=== PATIENT | male | born 1985 | race Caucasian/White ===

== ENCOUNTER 2018-09-23 02:23 | Emergency (ER) | payer OTHER ==
[~2018-09-23] VITALS: Ht 170.2 cm; Wt 93.0 kg
[~2018-09-23 02:23] MED LIST: BUPR150ER PO; Bactrim Ds Tab1 EACH PO; CEPH500 PO; CETI10 PO; CLIN300 PO; CLON.2 PO; CODACE30 PO; Cleocin HCl300 MG PO; Daypro600 MG PO; HYDACE10B PO; HYDACE5 PO; IBUP200; IBUP600 PO; IBUP800 PO; KETO10 PO; META800 PO; METO25ER PO; METO50 PO; METPRE4DP PO; NAPR375 PO; NAPR500 PO; Norco 5-325 Ta1 EACH PO; OXYACE5T PO; PARO20 PO; PRED10 PO; PRED20 PO; PROM25 PO; Pepcid20 MG PO; Percocet 5-3251 EACH PO; Prednisone20 MG PO; RXCLIN PO; RXHYDACE PO; RXTRAM50 PO; SUBOXONE 8 MG-1 EACH SL; SULF10OPSA OS; SULTRIDS PO; TRAM50 PO; Ultram50 MG PO; Vistaril25 MG PO
[2018-09-23] MEDS ORDERED: METH40 PO (04:27)
[2018-09-23] MEDS ORDERED: Garamycin5 ML RIGHTEYE (04:36)
== END 2018-09-23 04:52 | disposition home or self-care (01) ==
LOC: ER 02:23
DX: H10.9 Unspecified conjunctivitis (principal); F17.210 Nicotine dependence, cigarettes, uncomplicated; Z88.5 Allergy status to narcotic agent
CPT/HCPCS: 99283

== ENCOUNTER 2019-02-07 07:04 | Emergency (ER) | payer OTHER ==
[~2019-02-07] VITALS: Ht 170.2 cm; Wt 87.1 kg
[~2019-02-07 07:04] MED LIST changes: +Garamycin5 ML RIGHTEYE; +METH40 PO
[2019-02-07] MEDS ORDERED: ESCI10 PO (07:23)
[2019-02-07] MEDS ORDERED: ZESTORETIC 20-121 EA PO (07:23)
[2019-02-07] MEDS ORDERED: Lopressor 25 mg25 MG PT (07:24)
[2019-02-07] MEDS ORDERED: AMIT50 PO (07:25)
[2019-02-07] MEDS ORDERED: ESZO3 PO (07:25)
[2019-02-07] MEDS ORDERED: Colace100 MG PO (07:25)
[2019-02-07] MEDS ORDERED: Zantac150 MG PO (07:27)
[2019-02-07] MEDS ORDERED: Gentak3.5 GM RIGHTEYE (07:56)
== END 2019-02-07 09:10 | disposition home or self-care (01) ==
LOC: ER 07:04
DX: H18.821 Corneal disorder due to contact lens, right eye (principal); H10.9 Unspecified conjunctivitis; Z88.5 Allergy status to narcotic agent; Z88.8 Allergy status to other drugs, medicaments and biological substances; Z79.899 Other long term (current) drug therapy; F17.210 Nicotine dependence, cigarettes, uncomplicated
CPT/HCPCS: 96372; 99282-25; J1885

== ENCOUNTER 2020-09-17 21:45 | Emergency (ER) | payer OTHER ==
[~2020-09-17] VITALS: Ht 170.2 cm; Wt 83.9 kg
[~2020-09-17 21:45] MED LIST changes: +AMIT50 PO; +Colace100 MG PO; +ESCI10 PO; +ESZO3 PO; +Gentak3.5 GM RIGHTEYE; +Lopressor 25 mg25 MG PT; +ZESTORETIC 20-121 EA PO; +Zantac150 MG PO
== END 2020-09-18 00:43 | disposition home or self-care (01) ==
LOC: ER 21:45
DX: F15.10 Other stimulant abuse, uncomplicated (principal); F19.10 Other psychoactive substance abuse, uncomplicated; F17.210 Nicotine dependence, cigarettes, uncomplicated; Z91.041 Radiographic dye allergy status; Z79.899 Other long term (current) drug therapy
CPT/HCPCS: 96372; 99284-25

== ENCOUNTER 2020-09-19 04:04 | Emergency (ER) | payer OTHER ==
[~2020-09-19] VITALS: Ht 177.8 cm; Wt 86.2 kg
== END 2020-09-19 04:46 | disposition home or self-care (01) ==
LOC: ER 04:04
DX: Z00.00 Encounter for general adult medical examination without abnormal findings (principal); F17.210 Nicotine dependence, cigarettes, uncomplicated; Z88.5 Allergy status to narcotic agent; Z91.041 Radiographic dye allergy status
CPT/HCPCS: 99283

== ENCOUNTER 2020-09-21 00:59 | Inpatient (IN) | payer OTHER ==
[~2020-09-21] VITALS: Ht 180.3 cm; Wt 88.3 kg
[2020-09-21] MEDS ORDERED: AMIT50 PO (01:28)
[2020-09-21] MEDS ORDERED: ESCI10 PO (01:29)
[2020-09-21] MEDS ORDERED: ROPINIROLE HCL1 MG PO (01:29)
[2020-09-21] MEDS ORDERED: CARVEDILOL12.5 MG PO (01:29)
[2020-09-21 01:30] LABS: Calcium, Ionized (POC) 0.41 mmol/L (1.10-1.46); Chloride (POC) 76 mmol/L (98-108); Glucose (ISTAT POC) 158 mg/dL (70-99); Hemoglobin (POC) 11.9 g/dL (13.5-17.5); Sodium (POC) 111 mmol/L (135-148); Total CO2 (POC) 14 mmol/L (21-32)
[2020-09-21 01:38] LABS: BASOPHILS ABSOLUTE AUTO 0.01 K/mm3 (0.00-0.23); BASOPHILS PERCENT AUTO 0 % (0-2); EOSINOPHILS PERCENT AUTO 0 % (0-6); Hematocrit 30.8 % (37.0-53.0); Hemoglobin 11.2 g/dL (13.5-17.5); IMMATURE GRAN ABSOLUTE AUTO 0.05 K/mm3 (0.00-0.10); IMMATURE GRAN PERCENT AUTO 1 % (0-1); LYMPHOCYTES PERCENT AUTO 4 % (21-46); MONOCYTES ABSOLUTE AUTO 0.39 K/mm3 (0.16-1.47); MONOCYTES PERCENT AUTO 4 % (4-13); Mean Corpuscular HGB Conc 36.4 g/dL (31.5-36.5); Mean Corpuscular Volume 80 fL (80-100); Mean Platelet Volume 10.4 fL (9.1-12.4); NEUTROPHILS ABSOLUTE AUTO 9.62 K/mm3 (1.96-9.15); NEUTROPHILS PERCENT AUTO 92 % (41-73); Platelet Count 196 K/mm3 (150-400); RDW Coefficient Variation 12.3 % (11.7-14.2); RDW Standard Deviation 35.9 fL (35.1-46.3); Red Blood Cell Count 3.86 M/mm3 (4.30-5.90); White Blood Cell Count 10.47 K/mm3 (4.00-11.30)
[2020-09-21 02:01] LABS: Source, Urine Clean Catch
[2020-09-21 02:03] LABS: Appearance, Urine Hazy (Clear); Blood, Urine 5+ (Neg); Color, Urine Brown (P-Yellow); Glucose Qualitative, Urine 2+ (Neg); Ketones, Urine 1+ (Neg); Leukocyte Esterase, Urine 1+ (Neg); Nitrite, Urine Pos (Neg); Protein, Urine 3+ (Neg); Specific Gravity, Urine 1.025 (1.003-1.022); Urobilinogen, Urine NORM (Normal)
[2020-09-21 02:20] LABS: Bilirubin, Urine 1+ (Neg)
[2020-09-21 02:22] LABS: Amorphous Mod (0-Heavy); Bacteria Mod /hpf; Squamous Epithelial Cells Rare /hpf (Few)
[2020-09-21 05:14] LABS: Magnesium, Blood 1.8 mg/dL (1.6-2.4)
[2020-09-21 06:19] LABS: Alanine Aminotransfer (ALT/SGP 392 U/L (12-78); Albumin, Blood 1.9 g/dL (3.4-5.0); Albumin/Globulin Ratio 0.7 (0.8-1.8); Alk Phos 64 U/L (50-136); Anion Gap 26 mmol/L (6-16); Aspartate Aminotrans (AST/SGOT 517 U/L (12-37); Bilirubin, Total 0.7 mg/dL (0.1-1.0); Blood Urea Nitrogen 178 mg/dL (8-24); Bun/Creatinine Ratio 20.8 (12.0-20.0); CO2, Blood 11 mmol/L (21-32); Calcium, Blood <5.0 mg/dL (8.5-10.1); Chloride, Blood 85 mmol/L (98-108); Creatinine, Blood 8.55 mg/dL (0.60-1.20); Globulin, Blood 2.6 g/dL (2.2-4.0); Glomerular Filtration Rate 8 (60-); Glucose, Blood 38 mg/dL (70-99); Phosphorus, Blood 8.4 mg/dL (2.5-4.9); Potassium, Blood 5.4 mmol/L (3.5-5.5); Sodium, Blood 122 mmol/L (136-145); Total Protein, Blood 4.5 g/dL (6.4-8.2)
[2020-09-21 06:51] LABS: CPK Creatine Kinase >20000 U/L (39-308)
--- NOTE | 2020-09-21 07:35 | NUR ---
PT ARRIVED TO ICU 4 FROM ER VIA [facility]. ACCOMPANIED BY SUPERVISOR OF GUIDANCE AND TESTING. HAS SODIUM BICARB AND PROTONIX GTT RUNNING. CALCIUM GLUCONATE IS FINISHING UP. PT IS A/O X4. HE IS DROWSY AND WILL SLEEP WHEN LEFT ALONE. HAS MUSCLE TWITCHING T/O BODY. PT STATES THAT HE RELAPSED ON METH ALMOST A WEEK AGO AND HAS NOT DRANK ALCOHOL. HE ALSO STATES HE DOES HEROIN SOMETIMES. PT HAS SCRATCHES AND ABRASIONS T/O ENTIRE BODY. SCABS ALL OVER ARMS AND LEGS. HAS SCABS AROUND MOUTH WELL. STATES MOUTH IS SORE IN WHICH PT WILL SUCK BOTTOM LIP INTO MOUTH WHEN AT REST (NO TEETH). ALSO HAS BRUISING AROUND WRISTS AND DOWN LEGS AND BUTTOCKS. HAS BAJWA CATH DRAINING COLA COLORED URINE. DR. TERRELL HAS BEEN CONSULTED. NO SIGN OF DISTRESS AT THE MOMENT.
[2020-09-21 07:48] LABS: U Amphetamine Screen DETECTED; U Barbituate Screen Not Detected; U Benzodiazapine Screen Not Detected; U Cocaine Screen Not Detected; U Methadone Screen DETECTED; U Methamphetamine Screen DETECTED
[2020-09-21 07:49] LABS: U Buprenorphine Screen Not Detected; U Cannabinoids Screen Not Detected; U Opiates Screen Not Detected; U Oxycodone Screen Not Detected; U Phencyclidine Screen Not Detected; U Propoxyphene Screen Not Detected
[2020-09-21 10:58] LABS: Base Excess Venous -8.1 mmol/L; Bicarbonate Venous 18.2 mmol/L (24.0-30.0); PCO2 Venous 24.9 mmHg (38-42); pH Blood Venous 7.42 (7.34-7.37)
[2020-09-21 11:12] LABS: BASOPHILS ABSOLUTE AUTO 0.01 K/mm3 (0.00-0.23); BASOPHILS PERCENT AUTO 0 % (0-2); EOSINOPHILS PERCENT AUTO 0 % (0-6); IMMATURE GRAN ABSOLUTE AUTO 0.04 K/mm3 (0.00-0.10); IMMATURE GRAN PERCENT AUTO 0 % (0-1); LYMPHOCYTES ABSOLUTE AUTO 0.31 K/mm3 (0.84-5.20); LYMPHOCYTES PERCENT AUTO 3 % (21-46); MONOCYTES ABSOLUTE AUTO 0.25 K/mm3 (0.16-1.47); MONOCYTES PERCENT AUTO 3 % (4-13); Mean Corpuscular HGB 29.4 pg (26.0-34.0); Mean Corpuscular Volume 79 fL (80-100); Mean Platelet Volume 10.3 fL (9.1-12.4); NEUTROPHILS ABSOLUTE AUTO 8.55 K/mm3 (1.96-9.15); NEUTROPHILS PERCENT AUTO 93 % (41-73); Platelet Count 169 K/mm3 (150-400); RDW Coefficient Variation 12.4 % (11.7-14.2); RDW Standard Deviation 35.8 fL (35.1-46.3); White Blood Cell Count 9.16 K/mm3 (4.00-11.30)
[2020-09-21 12:12] LABS: CPK Creatine Kinase >20000 U/L (39-308)
[2020-09-21 12:31] LABS: Alanine Aminotransfer (ALT/SGP 450 U/L (12-78); Albumin, Blood 2.2 g/dL (3.4-5.0); Albumin/Globulin Ratio 0.7 (0.8-1.8); Alk Phos 73 U/L (50-136); Anion Gap 22 mmol/L (6-16); Aspartate Aminotrans (AST/SGOT 554 U/L (12-37); Bilirubin, Total 1.2 mg/dL (0.1-1.0); Blood Urea Nitrogen 209 mg/dL (8-24); Bun/Creatinine Ratio 19.4 (12.0-20.0); CO2, Blood 17 mmol/L (21-32); Calcium, Blood <5.0 mg/dL (8.5-10.1); Chloride, Blood 79 mmol/L (98-108); Globulin, Blood 3.2 g/dL (2.2-4.0); Glomerular Filtration Rate 6 (60-); Glucose, Blood 174 mg/dL (70-99); Potassium, Blood 5.1 mmol/L (3.5-5.5); Sodium, Blood 118 mmol/L (136-145); Total Protein, Blood 5.4 g/dL (6.4-8.2)
[2020-09-21 12:45] LABS: Creatine Kinase MB 573.6 ng/mL (0.0-3.6)
[2020-09-21 12:46] LABS: Creatine Kinase MB Index Unable to Calculate (0.0-4.0)
[2020-09-21 13:49] LABS: pH, Urine 6.5 (5.0-8.0)
--- NOTE | 2020-09-21 16:08 | NUR ---
PT FEELING ANXIOUS. HAS MUSCLE TWITCHES T/O BODY. DR. WORKMAN ORDERED A DOSE OF FENTANYL.
[2020-09-21 16:10] LABS: Base Excess Venous -4.8 mmol/L; Bicarbonate Venous 21.2 mmol/L (24.0-30.0); PCO2 Venous 27.2 mmHg (38-42); PO2 Venous 80.9 mmHg (38-42); pH Blood Venous 7.46 (7.34-7.37)
[2020-09-21 16:30] LABS: Anion Gap 23 mmol/L (6-16); Blood Urea Nitrogen 212 mg/dL (8-24); Bun/Creatinine Ratio 19.3 (12.0-20.0); CO2, Blood 19 mmol/L (21-32); Calcium, Blood <5.0 mg/dL (8.5-10.1); Chloride, Blood 80 mmol/L (98-108); Glomerular Filtration Rate 6 (60-); Glucose, Blood 97 mg/dL (70-99); Potassium, Blood 4.8 mmol/L (3.5-5.5); Sodium, Blood 122 mmol/L (136-145)
--- NOTE | 2020-09-21 18:51 | NUR ---
SUMMARY PT IS A/O X4. DROWSY T/O THE DAY BUT AWAKENS EASILY. MUSCLE TWITCHING T/O BODY. HAS GOTTEN CALCIUM GLUCONATE IVPB 2X TODAY. DR. TERRELL ON THE CASE FOR RENAL FAILURE AND UPDATED T/O THE DAY. DR. WORKMAN ALSO FOLLOWING FOR CRITICAL CARE. PT HAD ONE LOW GLUCOSE TODAY OF 34. D50 GIVEN AND HAS BEEN BETTER SINCE. PT IS ALSO ABLE TO TOLERATE REGULAR DIET. HAS GOTTEN 2 DOSES OF SODIUM BICARB IVP WELL. LABS CONTINUE TO BE CRITICAL BUT DR. TERRELL SAYS NO DIALYSIS YET. WILL CHECK LABS AGAIN IN AM. CALL LIGHT IN REACH.
--- NOTE | 2020-09-21 22:04 | NUR ---
CARE ASSUMPTION PT A&OX4. SP02>90% ON RA. RR 24. SP02 MONITOR CHANGED MULTIPLE TIMES TO GET GOOD READING. BP STABLE. PT C/O OF 7/10 PAIN "ALL OVER". PT SKIN HAS SCABBING T/O AND TWITCHING T/O. BAJWA CATHETER DRAINING TEA COLORED URINE TO GRAVITY. PT WAS UP TO BSC HAVING BM UPON CARE ASSUMPTION. FLUIDS INFUSING PER EMAR. CALL LIGHT IN REACH. BED IN LOWEST POSITION.
[2020-09-22 03:51] LABS: International Normalized Ratio 1.11; Prothrombin Time Results 11.8 Sec (9.7-11.5)
[2020-09-22 03:55] LABS: BASOPHILS PERCENT AUTO 0 % (0-2); EOSINOPHILS ABSOLUTE AUTO 0.03 K/mm3 (0.00-0.68); EOSINOPHILS PERCENT AUTO 0 % (0-6); Hematocrit 25.6 % (37.0-53.0); Hemoglobin 9.6 g/dL (13.5-17.5); IMMATURE GRAN ABSOLUTE AUTO 0.04 K/mm3 (0.00-0.10); IMMATURE GRAN PERCENT AUTO 0 % (0-1); LYMPHOCYTES ABSOLUTE AUTO 0.68 K/mm3 (0.84-5.20); LYMPHOCYTES PERCENT AUTO 7 % (21-46); MONOCYTES ABSOLUTE AUTO 0.52 K/mm3 (0.16-1.47); MONOCYTES PERCENT AUTO 6 % (4-13); Mean Corpuscular HGB 29.2 pg (26.0-34.0); Mean Corpuscular HGB Conc 37.5 g/dL (31.5-36.5); Mean Corpuscular Volume 78 fL (80-100); Mean Platelet Volume 10.2 fL (9.1-12.4); NEUTROPHILS ABSOLUTE AUTO 8.12 K/mm3 (1.96-9.15); NEUTROPHILS PERCENT AUTO 87 % (41-73); Platelet Count 162 K/mm3 (150-400); RDW Coefficient Variation 12.5 % (11.7-14.2); RDW Standard Deviation 34.7 fL (35.1-46.3); Red Blood Cell Count 3.29 M/mm3 (4.30-5.90); White Blood Cell Count 9.39 K/mm3 (4.00-11.30)
[2020-09-22 05:23] LABS: Blood Urea Nitrogen 196 mg/dL (8-24); Glomerular Filtration Rate 6 (60-); Phosphorus, Blood 8.7 mg/dL (2.5-4.9)
[2020-09-22 05:25] LABS: Alanine Aminotransfer (ALT/SGP 422 U/L (12-78); Albumin, Blood 2.2 g/dL (3.4-5.0); Albumin/Globulin Ratio 0.7 (0.8-1.8); Alk Phos 71 U/L (50-136); Anion Gap 21 mmol/L (6-16); Aspartate Aminotrans (AST/SGOT 469 U/L (12-37); Bilirubin, Direct 0.2 mg/dL (0.0-0.3); Bilirubin, Indirect 0.5 mg/dL (0.1-0.7); Bilirubin, Total 0.7 mg/dL (0.1-1.0); CO2, Blood 22 mmol/L (21-32); CPK Creatine Kinase >20000 U/L (39-308); Calcium, Blood <5.0 mg/dL (8.5-10.1); Chloride, Blood 79 mmol/L (98-108); Globulin, Blood 3.2 g/dL (2.2-4.0); Glucose, Blood 87 mg/dL (70-99); Magnesium, Blood 1.9 mg/dL (1.6-2.4); Potassium, Blood 4.4 mmol/L (3.5-5.5); Sodium, Blood 122 mmol/L (136-145); Total Protein, Blood 5.4 g/dL (6.4-8.2); Uric Acid, Blood 14.3 mg/dL (3.5-7.2)
--- NOTE | 2020-09-22 05:37 | NUR ---
LABS LAB CALLED TO NOTIFY PT RESULTS CAME BACK CALCIUM <5. CALLED RESULTS INTO MD TERRELL. MD TERRELL WITH ORDERS FOR 1 AMP CALCIUM GLUCONATE.
--- NOTE | 2020-09-22 06:27 | NUR ---
SHIFT SUMMARY PT A&OX4. SP02>92% ON RA. TELEMETRY READS SR, HR 70'S-80'S. VSS. PT'S HANDS SLIGHTLY EDEMITIS. REPLACED PT WRISTBAND D/T BEING TOO TIGHT. PT CONTINUES TO HAVE MUSCLE TWITCHING T/O. PT DID HAVE ONE EPISODE OF NAUSEA/DRY HEAVING. MEDICATED W/ ZOFRAN PER EMAR. PT C/O OF 7/10 PAIN "ALL OVER". MEDICATED W/ DILAUDID PER EMAR X2. PT HAS BJAWA CATHETER DRAINING YELLOW URINE TO GRAVITY. [place] [facility] [place]1. PT DID HAVE CRITICAL LAB RESULTS, SEE PREVIOUS NOTE. FLUIDS INFUSING PER EMAR. PT SOMETIMES USES CALL LIGHT, BUT ALSO CALLS OUT "NURSE" TO MAKE NEEDS KNOW. CALL LIGHT IN REACH. WILL GIVE REPORT TO ONCOMING SHIFT.
--- NOTE | 2020-09-22 07:30 | NUR ---
PT RECEIVED FROM MARY TERESA. PT FEELS LIKE HE NEEDS TO USE THE BSC. RESTLESS, SEEMS LIKE HE IS FLAILING...ENCOURAGED HIM TO MOVE HIMSELF TO THE EDGE OF THE BED TO ASSIST IN GETTING TO THE COMMODE. LOTS OF VERBAL CUES, UNSTEADY GAIT, PT MOANS, CRIES OUT WITH ANY TOUCH. ALL 4 EXTREMITIES WITH PERIPHERAL EDEMA, MULITPLE SCABS ACROSS HIS FACE,NARES,LIPS,CHIN,ARMS,LEGS,FEET. PT STATES HE FEELS "GASSY". PT ASKING ABOUT SHOWER. IV'S INFUSING D5LR @ 75 AND HCO3 @ 100ML. BAJWA DRAINING CLEAR YELLOW AT THIS TIME.
--- NOTE | 2020-09-22 09:00 | NUR ---
PT REQUESTS PAIN MEDS, DILAUDID 0.5MG GIVEN PER ORDER.
--- NOTE | 2020-09-22 11:16 | NUR ---
PT ASKING FOR ADDITIONAL PAIN MEDS, STILL "SPITTING UP" IN HIS EMESIS BAG. NO VOMIT, JUST SPITTAL. ZOFRAN GIVEN PER OCT.
--- NOTE | 2020-09-22 12:04 | NUR ---
PT ASKING FOR MORE PAIN MEDS, CALLED . ORDERS RECEIVED,PATIENT MEDICATED PER ORDERS.
--- NOTE | 2020-09-22 14:00 | NUR ---
PT ASKING FOR MORE MEDS, DISCUSSION ABOUT COPING MECHANISMS, HOW DO YOU DEAL WITH STUFF WHEN YOU ARE WORKED UP? IS IT SINUS DRAINAGE YOU FEEL IN THE BACK OF YOUR THROAT? DOES YOUR HEAD HURT? WHAT IS THE BEST WAY TO HANDLE YOUR DISCOMFORT? PT ASKS TO "VAPE", TOLD NO. NOT GOOD FOR HIS LUNGS. PT THEN ASKS FOR CIGARETTES, AGAIN EXPLAINED THIS IS A TOBACCO FREE CAMPUS. WAS ABLE TO GET AHOLD OF , ORDERS RECEIVED. 1442 PATIENT MEDICATED WITH MORPHINE AND ATIVAN. 1500-PATIENT STATES FEELING BETTER.
--- NOTE | 2020-09-22 16:31 | NUR ---
PT RESTING QUIETLY, HAD TO WAKE HIM FOR 1600 INJECTIONS OF MEDICATIONS AND CBG. PT STATES THAT NOW HE IS AWAKE AND WANTS HIS NICORETTE GUM. PT MORE SETTLED THAN EARLIER IN THE SHIFT.
--- NOTE | 2020-09-22 18:38 | NUR ---
MARK HAS BEEN ENGAGING THIS SHIFT. HE HAS BEEN MOANING WHEN I AM NOT IN THE ROOM. HE HAS BEEN TRYING TO CHIT CHAT A LITTLE BIT TODAY BUT HE IS DEFINITELY NOT HAPPY. HE STATED HE IS "HATING LIFE RIGHT NOW". HE HAS BEEN ASKING ABOUT PAIN MEDS EVERY COUPLE OF HOURS, HAD MULTIPLE CONVERSATIONS WITH TODAY REGARDING HIS REQUESTS. HE CONTINUES TO "SPIT" OFTEN. HE ACTS LIKE HE HAS POST NASAL DRIP THAT IS JUST IRRITATING HIM. HE PICKS AT HIS NOSE AND MAKES IT BLEED, CLEARS HIS THROAT SO OFTEN THAT HE GETS FRESH BLOOD IN HIS TISSUE. I HAVE TALKED TO HIM ABOUT INCREASING HIS FLUID INTAKE AND TRYING TO NOT FORCE THE THROAT CLEARING AND SPITTING. TRIED TALKING TO HIM ABOUT DIFFERENT WAYS TO DEAL WITH HIMSELF WHEN HE GETS WORKED UP LIKE HE WAS EARLIER. HE SAYS HE NORMALLY JUST WORKS. HIS FATHER VISITED TODAY, SAID HIS SON HAD BEEN CLEAN FOR 5 YEARS AND THEN RECENTLY WENT THROUGH A DIVORCE. PT DOESN'T TALK ABOUT IT. DID ORDER NICORETTE GUM FOR PATIENT, HE IS CRAVING CIGARETTES OR "VAPING". VITALS HAVE BEEN STABLE, URINE OUTPUT GOOD. ONE BOWEL MOVEMENT THIS AM, GOOD APPETITE.
--- NOTE | 2020-09-22 19:47 | NUR ---
SHIFT ASSESSMENT ASSUMED CARE OF PT @ 1900, REPORT RECEIVED FROM MARY ORTEGA. PT ALERT AND ORIENTED, RESPONDS APPROPRIATELY. PT STATES "I FEEL TERRIBLE". WHEN ASKED WHAT'S WRONG, HE REPLIED "EVERYTHING HURTS, I'VE BEEN IN PAIN SINCE I HAVE BEEN HERE". PT REQUESTING A DIFFERENT PAIN MEDICATION BY NAME, OPANA. PT FIDGETY IN BED. WINCING IN RESPONSE TO TOUCH DURING ASSESSMENT. EDEMA IN ALL EXTREMITIES, DRIED SCABS COVERING BODY. BAJWA CATH PATENT, DRAINING CLEAR YELLOW URINE. D5LR AND HCO3 INFUSING AT PRESCRIBED RATE. WILL CONTINUE TO MONITOR.
[2020-09-23 03:44] LABS: Hematocrit 24.8 % (37.0-53.0); Hemoglobin 9.3 g/dL (13.5-17.5)
[2020-09-23 04:26] LABS: Creatine Kinase MB 83.6 ng/mL (0.0-3.6); Magnesium, Blood 1.8 mg/dL (1.6-2.4)
[2020-09-23 04:34] LABS: Anion Gap 19 mmol/L (6-16); Blood Urea Nitrogen 196 mg/dL (8-24); CO2, Blood 26 mmol/L (21-32); Chloride, Blood 79 mmol/L (98-108); Glomerular Filtration Rate 5 (60-); Glucose, Blood 138 mg/dL (70-99); Potassium, Blood 3.5 mmol/L (3.5-5.5); Sodium, Blood 124 mmol/L (136-145)
[2020-09-23 04:36] LABS: Calcium, Blood <5.0 mg/dL (8.5-10.1)
[2020-09-23 04:37] LABS: CPK Creatine Kinase >20000 U/L (39-308)
--- NOTE | 2020-09-23 07:17 | NUR ---
SHIFT SUMMARY PT REMAINS ALERT AND ORIENTED. HIS PAIN AND RESTLESSNESS SEEMED TO DIMINISH T/O THE NIGHT. PT ABLE TO SLEEP INTERMITTENTLY. D5LR AND HCO3 CONTINUE AT PRESCRIBED RATE. AM LABS CALLED IN TO DR. TERRELL, 1AMP OF CALCIUM GLUCONATE ORDERED AND GIVEN THIS AM. NO OTHER SIGNIFICANT CHANGES IN PT CONDITION. REPORT GIVEN TO MARY ORTEGA.
--- NOTE | 2020-09-23 10:00 | NUR ---
TALKING WITH PATIENT,ORDERS RECEIVED FOR TUMS AND CALCITROL.
--- NOTE | 2020-09-23 10:30 | NUR ---
MARK HAS BEEN BUSY THIS AM, HE STARTED WITH REQUESTING TO BE UP AND OUT OF BED WALKING FIRST THING THIS AM. HE WAS INSTRUCTED THAT HE NEEDED TO SHOW MORE INDEPENDENCE FOR ME TO WALK HIM AROUND. HE WAS ASKED TO MOVE TO THE CHAIR, HE IS VERY SLOW IN MOVING, UNABLE TO MOVE HIS LEGS WITHOUT ASSISTANCE OUT OF THE BED, HE ALSO CANNOT STAND FULLY UPRIGHT WITHOUT FEELING WEAK AND WOBBLY. HE LIKED BEING IN THE CHAIR, BUT NEEDED TO USE THE BSC PRETTY QUICKLY. HE HAD A LARGE LOOSE BROWN STOOL. HE HAD BEEN SLIGHTLY INCONTINENT IN THE BED, NOT REALIZING. HE ATE HIS BREAKFAST WELL. HE USED THE BSC AGAIN AND HAD A PARTIAL BATH WHILE UP. HE IS CURRENTLY IN THE CHAIR WITH HIS LEGS PROPPED ON THE BED. PICKING AT HIS FINGERS, FOREHEAD, ETC. ENCOURAGED HIM TO APPLY A GOOD LAYER OF LOTION TO HIS SKIN AND SEE IF IT HELPS.
--- NOTE | 2020-09-23 11:09 | NUR ---
MARK TO [facility] [place] AGAIN, HE IS EXPRESSING FRUSTRATION WITH HOW OFTEN HE NEEDS TO GO TO THE COMMODE. HE IS FEELING TIRED AND HEADS TO BED. HE IS TWITCHING AND MOANING IN HIS SLEEP, BUT FINALLY RESTING.
--- NOTE | 2020-09-23 11:43 | NUR ---
PT IS SLEEPING WELL
--- NOTE | 2020-09-23 15:00 | NUR ---
PT'S DAD, BRIGETTE JUST CAME IN TO VISIT,BROUGHT THE PATIENT POPSCICLES AND HIS PERSONAL SAFE FULL OF HIS OWN MEDICATIONS INCLUDING HIS METHADONE, PER BRIGETTE. I DISCUSSED WITH MARK THAT HE CAN NOT HAVE HIS OWN MEDICATIONS, ESPECIALLY THINGS THAT ARE NOT PRESCRIBED BY OUR DOCTORS HERE. HE ARGUES THAT METHADONE IS A PRESCRIBED MEDICATION FOR HIM AND THAT IT HAS BEEN A BIG "REASON THAT HE MADE IT THROUGH THE LAST COUPLE OF YEARS". I EXPLAINED THAT THE DOCTORS HERE ARE AWARE OF WHAT HE TAKES AND WHY, BUT THAT IN THE STATE HIS BODY IS IN AND THE MEDICATIONS THAT HE IS RECEIVING, IT MAY NOT BE BENEFICIAL FOR HIM TO RECEIVE THOSE AT THIS TIME. HE EXPRESSED HIS FRUSTRATION. I EXPLAINED THE MEDS WILL BE GOING BACK HOME WITH HIS FATHER.
--- NOTE | 2020-09-23 15:22 | NUR ---
PT MEDICATED FOR 06/19 PAIN. YES, HE SAID 11. ALSO GAVE HIM SOME ATIVAN TO CALM HIM DOWN. PT DID ASK IF HE COULD GET SOME PHYSICAL THERAPY TO HELP STRENGTHEN HIS LEGS. HE RECOGNIZES THAT THEY ARE INCREDIBLY WEAK AND HE CAN'T STAND ALONE. HE WAS PRAISED FOR ACKNOWLEDGING A NEED AND ASKING FOR IT.
--- NOTE | 2020-09-23 17:31 | NUR ---
MARK IS CURRENTLY RESTING, HE HAS BEEN MORE ALERT AND ORIENTED THROUGHOUT THE DAY. HE WANTS TO BE MORE INDEPENDENT, BUT HE IS STILL UNSTEADY AND NOT FOCUSING CLEARLY, [place] [facility] [place] HE IS STILL HAVING STOOLS AFTER EACH MEAL, THEY ARE LARGE,LIQUID,MUCOUS FILLED. HE HAS BEEN LESS "SPITTY" TODAY. HE HAS BEEN VERY HUNGRY AND EATING WHATEVER COMES HIS WAY, ALSO HAVING HIS DAD BRING IN FOOD FROM [employer]. HE IS STILL FRUSTRATED THAT HE DOES NOT HAVE HIS METHADONE, BUT IS DOING BETTER WITH THE COMBINATION OF DRUGS BEING GIVEN. REPORT JUST GIVEN TO DAVID LOZANO RN. WILL TRANSFER TO [facility]- WHEN AVAILABLE.
--- NOTE | 2020-09-23 18:33 | NUR ---
ASSUMED CARE: PT TRANSFERRED FROM ICU AFTER REPORT FROM MARY ORTEGA. PT TRANSFERRED TO BED AND WALKED TO PCU BED. HE APPEARS TO NEED PROMPTING FOR ACTIVITY AND WHEN FOLLOWING DIRECTIONS. NSR ON TELE, FLUIDS RESTARTED PER EMAR. MEDICATED FOR PAIN AND REVIEWED MEDICATION ORDERS WITH PT. BED ALARM ON. NO FURTHER NEEDS AT THIS TIME.
[2020-09-24 04:16] LABS: Hematocrit 25.4 % (37.0-53.0)
[2020-09-24 04:51] LABS: Magnesium, Blood 1.7 mg/dL (1.6-2.4)
[2020-09-24 05:05] LABS: Albumin, Blood 1.8 g/dL (3.4-5.0); Anion Gap 16 mmol/L (6-16); Blood Urea Nitrogen 182 mg/dL (8-24); CO2, Blood 28 mmol/L (21-32); Calcium, Blood <5.0 mg/dL (8.5-10.1); Chloride, Blood 84 mmol/L (98-108); Glomerular Filtration Rate 5 (60-); Glucose, Blood 188 mg/dL (70-99); Phosphorus, Blood 6.5 mg/dL (2.5-4.9); Potassium, Blood 2.9 mmol/L (3.5-5.5); Sodium, Blood 128 mmol/L (136-145)
--- NOTE | 2020-09-24 08:05 | NUR ---
SHIFT SUMMARY PATIENT IS ALERT AND ORIENTED BUT FORGETFUL AND ANXIOUS. 2 PERSON ASSIST TO BEDSIDE COMMODE. O2 SATS >95% ON RA. VSS. PATIENT MEDICATED FOR PAIN SEE EMAR. PATIENTED REPEATEDLY REMINDED TO NOT PICK AT SCABS. CRITICAL LAB OF CALCIUM <5, AND POTASSIUM OF 2.9 CALLED TO , SEE EMAR FOR ORDERS. CREATININE TRENDING IN RIGHT DIRECTION. CALLED PHARMACY TO VERIFY IV MEDICATION COMPATIBILITY. PATIENT IS NOW EATING, CBGs CHANGED TO AC HS PER HOSPITALIST. CALL LIGHT IN REACH, BED ALARM ON.
[2020-09-24 11:08] LABS: Albumin, Blood 1.9 g/dL (3.4-5.0); Albumin/Globulin Ratio 0.6 (0.8-1.8); Bilirubin, Total 0.4 mg/dL (0.1-1.0); Globulin, Blood 3.3 g/dL (2.2-4.0); Potassium, Blood 3.1 mmol/L (3.5-5.5); Total Protein, Blood 5.2 g/dL (6.4-8.2)
[2020-09-24 11:09] LABS: Bun/Creatinine Ratio 14.6 (12.0-20.0)
[2020-09-24 11:14] LABS: Calcium, Blood 5.1 mg/dL (8.5-10.1); Creatinine, Blood 11.7 mg/dL (0.60-1.20)
--- NOTE | 2020-09-24 18:39 | NUR ---
SHIFT SUMMARY: NO ACUTE CHANGES T/OUT SHIFT. PT WITH MOMENTS OF LUCIDITY, ASKING APPROPRIATE QUESTIONS AND THEN PERIODS OF LETHARGY AND NAPPING. PT ORIENTED TO SELF, PLACE, SITUATION AND DATE, MAINTAINING O2 SATS >93% ON ROOM AIR, SR ON MONITOR. PT WITH MULTIPLE SCABS T/OUT BODY, FREQUENTLY PICKING AND SCRATCHING DESPITE FREQUENT REMINDERS, BANDAID PLACED TO TIP OF NOSE TO DISCOURAGE PICKING AFTER PT PICKED SCAB AND BLEEDING OCCURRED. PT OFTEN C/O PAIN TO FACE, HANDS, FEET AND REQUIRING PRN PAIN MEDICATION. IV FLUIDS CONTINUE TO INFUSE W/OUT DIFFICULTY. WILL CONTINUE TO MONITOR AND TREAT ACCORDINGLY UNTIL CHANGE OF SHIFT.
[2020-09-25 04:19] LABS: Hematocrit 24.8 % (37.0-53.0); Hemoglobin 8.8 g/dL (13.5-17.5)
[2020-09-25 04:44] LABS: Magnesium, Blood 1.5 mg/dL (1.6-2.4)
--- NOTE | 2020-09-25 04:56 | NUR ---
SHIFT SUMMARY PATIENT IS ALERT AND ORIENTED, HAS TROUBLE FINDING WORDS AT TIMES. 2 PERSON ASSIST TO BEDSIDE COMMODE. PATIENT STILL VERY WEAK. PATIENT CAN BE DEMANDING AT TIMES AND BOUNDARIES NEED SET. PATIENT DEMANDING SHOWER BUT IS UNABLE TO WALK, TEACHING PROVIDED ON SAFETY AND PATIENT RECIEVED BED BATH INSTEAD. BED ALARM ON, PATIENT MAKING STATEMENTS THAT HE MIGHT GET UP ON HIS OWN, NO ATTEMPTS TO GET UP ON OWN YET. 02 SATS >90% ON RA. CALL LIGHT IN REACH
[2020-09-25 05:30] LABS: Albumin, Blood 1.8 g/dL (3.4-5.0); Anion Gap 18 mmol/L (6-16); Blood Urea Nitrogen 163 mg/dL (8-24); CO2, Blood 27 mmol/L (21-32); Chloride, Blood 88 mmol/L (98-108); Glomerular Filtration Rate 6 (60-); Glucose, Blood 143 mg/dL (70-99); Phosphorus, Blood 4.9 mg/dL (2.5-4.9); Sodium, Blood 133 mmol/L (136-145)
[2020-09-25 05:44] LABS: Calcium, Blood 5.5 mg/dL (8.5-10.1)
--- NOTE | 2020-09-25 06:08 | NUR ---
CRITICAL LABS OF CALCIUM 5.5 AND P[address]ASSIUM [address] TERRELL ORDERS FOR KCL SEE EMAR. ALSO NOTIFIED OF CREATININE 10.9.
--- NOTE | 2020-09-25 07:38 | NUR ---
DR. TERRELL TO ROOM VERBAL ORDERS GIVEN, SEE EMAR.
--- NOTE | 2020-09-25 17:48 | NUR ---
SHIFT SUMMARY: NO ACUTE CHANGES TODAY. PT CONTINUES WITH EPISODES OF LETHARGY AND ALERTNESS. PT A&O TO SELF, PLACE, LOCATION, DATE. PT CONTINUES ON RA, RESP EVEN AND UNLABORED, HRR. PT ABLE TO STAND AND PIVOT TO BSC, USED BED AND BSC FOR BALANCE, 2 STAFF IN ROOM TO HELP PT. PT EATING MEALS, USING CALL LIGHT APPROPRIATELY, ABLE TO MAKE NEEDS KNOWN. REPORT GIVEN TO MARY REYNOSO TO RECEIVE PT IN MEDICAL DEPT.
--- NOTE | 2020-09-25 18:00 | NUR ---
PT IS A 34YO/M, WHO WAS ADMITTED OF ACUTE ENCEPHALOPATHY. PT WAS FOUND IN HIS CAR WITH ALCOHOL. PT ALSO A METH AND HEROIN USER. PT HAS MULTIPLE WOUNDS IN HIS BODY. PT WAS ASKED WHERE IS THE WOUNDS CAME FROM ESPECIALLY ON HIS NOSE' HE STATED MANY THINGS JUST HAPPENED. PER AUDIT SPEC; THIS PT IS GOING THROUGH DIVORCE. PT LIVES WITH MOTHER AND STEPFATHER. PT HAS CRITICAL LAB VALUES OF CA 5.5, AND CREATININE- 10.90. PT HAS LOW H&H. DR TERRELL WAS CONSULTED. PT IS ON D5LR AND SODIUM BICARB IV. PT HAS R AND L POWERGLIDE. PT ALSO VERY WEAK ON FEET- 1-2P ASSIST USING BSC. PT HAS BAJWA ON FOR I&O'S. PT USES CALL LIGHTS APPROPRIATELY AND DENIES PAIN AT THIS TIME. PT IS ON RA, AND DENIES SOB. BED IS IN THE LOWEST POSITION AND CALL LIGHTS WITHIN REACH
[2020-09-26 04:38] LABS: Hematocrit 24.1 % (37.0-53.0); Hemoglobin 8.3 g/dL (13.5-17.5)
[2020-09-26 05:05] LABS: Magnesium, Blood 1.7 mg/dL (1.6-2.4)
[2020-09-26 05:06] LABS: Albumin, Blood 1.8 g/dL (3.4-5.0); Anion Gap 15 mmol/L (6-16); Blood Urea Nitrogen 143 mg/dL (8-24); CO2, Blood 29 mmol/L (21-32); Calcium, Blood 6.4 mg/dL (8.5-10.1); Chloride, Blood 92 mmol/L (98-108); Glomerular Filtration Rate 6 (60-); Glucose, Blood 142 mg/dL (70-99); Phosphorus, Blood 4.4 mg/dL (2.5-4.9); Potassium, Blood 3.1 mmol/L (3.5-5.5); Sodium, Blood 136 mmol/L (136-145)
--- NOTE | 2020-09-26 07:46 | NUR ---
SHIFT SUMMARY: PATIENT IS A&OX3, VSS, CREATINE IS CRITICAL AT 11, INCREASED SLIGHTLY FROM YESTERDAY. REPORTING PAIN IN BILAT FEET 10/10 AND 7/10 IN BILAT HANDS AND FACE. OXYCODONE WAS GIVEN X2 WITH FAIR EFFECT AND MORPHINE WAS GIVEN X1 FOR BREAKTHROUGH PAIN. DR TERRELL WAS IN THIS AM AND ORDERS WERE RECIEVED, BICARB WAS STOPPED AND POTASSIUM AND LASIX WERE ORDERED.
--- NOTE | 2020-09-26 18:08 | NUR ---
SHIFT SUMMARY PT AOX4; CALLS APPROPRIATELY. PT VERY UNSTEADY AND WEAK ON HIS FEET. USES BSC WITH 1P ASSIST. PT CONCERNS ABOUT HIS PENIS AREA THAT IS PAINFUL FROM CATHETER;CALLED DR FELIX TO SEE IF WE CAN TAKE IT OUT. STATED THAT NEED A STRICT I&O'S FOR THIS PT; EDUCATED THE PT AND MOM ABOUT THE PURPOSE OF BAJWA. CREATININE LEVEL IS STILL 11. PT ALSO VERY PAINFUL; MEDICATED WITH OXYCODONE AND MORPHINE X1. PT DENIES N&V. PT DOES NOT SHOWN ANY WITHDRAWAL SYMPTOMS AND STATED THAT HE USED TO RECEIVE METHADONE. PT EDUCATED ABOUT THE BENEFITS OF REHAB. PT MOM WAS AT BEDSIDE. PT BED IS IN THE LOWEST POSITION AND CALL LIGHT WITHIN REACH.
[2020-09-27 06:12] LABS: Hematocrit 21.9 % (37.0-53.0); Hemoglobin 7.5 g/dL (13.5-17.5)
[2020-09-27 06:45] LABS: Anion Gap 13 mmol/L (6-16); Blood Urea Nitrogen 140 mg/dL (8-24); CO2, Blood 28 mmol/L (21-32); Calcium, Blood 7.4 mg/dL (8.5-10.1); Chloride, Blood 91 mmol/L (98-108); Creatine Kinase MB 6.1 ng/mL (0.0-3.6); Glucose, Blood 137 mg/dL (70-99); Magnesium, Blood 1.8 mg/dL (1.6-2.4); Phosphorus, Blood 5.4 mg/dL (2.5-4.9); Potassium, Blood 3.6 mmol/L (3.5-5.5); Sodium, Blood 132 mmol/L (136-145)
[2020-09-27 06:46] LABS: Bun/Creatinine Ratio 12.7 (12.0-20.0); CPK Creatine Kinase 3849 U/L (39-308); Creatine Kinase MB Index 0.2 (0.0-4.0); Glomerular Filtration Rate 6 (60-)
--- NOTE | 2020-09-27 06:55 | NUR ---
SHIFT SUMMARY: PATIENT IS A&OX4, ABLE TO STAND WITH MINIMAL ASSISTANCE, NEEDS HELP WITH LINES AND BAJWA FOR TRANSFER TO BSC. MULTIPLE LOOSE STOOL THIS SHIFT. REPORTING PAIN IN BILAT FEET 04/19. OXYCODONE WAS GIVEN X2 AND MORPHINE X1 FOR BREAKTHROUGH PAIN HAS PROVIDED GOOD PAIN CONTROL. VIEWS SCORE OF 3 FOR LOW GRADE TEMP AND TACHYCARDIA. VS WILL BE MONITORED Q2H X3, CONSTRUCTION QUALITY CONTROL MANAGER AWARE.
--- NOTE | 2020-09-27 16:54 | NUR ---
HE HAS BEEN ANXIOUS ALL DAY INSPITE OF AN ORDER CHANGE. HE NOW HAS ALPRAZALOM INSTEAD OF KLONIPIN. HE HAS TAKEN OXYCODONE X2 AND MORPHINE X1 FOR THE PAIN MOSTLY IN HIS FEET BUT ALSO HIS BOTTOM AND HIS HANDS. HIS SKIN HAS PROBLEMS ALL OVER, RASHES, REDNESS, SCABS, BRUISES, AND SWELLING. BUMEX ORDER TODAY IS A DAILY ORDER. HE HAS MADE A LOT OF URINE. BAJWA PATENT. HE HAD LOOSE BM TODAY ON THE BSC. HE IS 1 ASSIST. CBG'S ARE STABLE. KIDNEY LABS ARE CRITICAL. HE IS ANEMIC. IVF'S CONTINUE. BOTH POWERGLIDES ARE PATENT AND DRAW BLOOD. HANDS AND ARMS ARE VERY SWOLLEN. I TRIED TO GET HIM TO KEEP HIS ARMS UP ON A PILLOW EACH BUT HE MOVES THE PILLOWS OUT. REGULAR DIET. APPETITE GOOD. HE HAS WORN HIS SCD'S PART OF THE DAY AND ALSO GETS HEPARIN SHOTS FOR DVT PROPHYLAXIS.
[2020-09-28 03:46] LABS: BASOPHILS ABSOLUTE AUTO 0.02 K/mm3 (0.00-0.23); BASOPHILS PERCENT AUTO 0 % (0-2); EOSINOPHILS ABSOLUTE AUTO 0.39 K/mm3 (0.00-0.68); EOSINOPHILS PERCENT AUTO 2 % (0-6); Hematocrit 21.1 % (37.0-53.0); Hemoglobin 7.2 g/dL (13.5-17.5); IMMATURE GRAN ABSOLUTE AUTO 0.74 K/mm3 (0.00-0.10); IMMATURE GRAN PERCENT AUTO 4 % (0-1); LYMPHOCYTES ABSOLUTE AUTO 1.69 K/mm3 (0.84-5.20); LYMPHOCYTES PERCENT AUTO 9 % (21-46); MONOCYTES ABSOLUTE AUTO 0.77 K/mm3 (0.16-1.47); MONOCYTES PERCENT AUTO 4 % (4-13); Mean Corpuscular HGB 29.4 pg (26.0-34.0); Mean Corpuscular HGB Conc 34.1 g/dL (31.5-36.5); Mean Corpuscular Volume 86 fL (80-100); NEUTROPHILS ABSOLUTE AUTO 15.75 K/mm3 (1.96-9.15); NEUTROPHILS PERCENT AUTO 81 % (41-73); Platelet Count 284 K/mm3 (150-400); RDW Coefficient Variation 13.6 % (11.7-14.2); RDW Standard Deviation 42.8 fL (35.1-46.3); Red Blood Cell Count 2.45 M/mm3 (4.30-5.90); White Blood Cell Count 19.36 K/mm3 (4.00-11.30)
[2020-09-28 04:12] LABS: Magnesium, Blood 1.7 mg/dL (1.6-2.4)
[2020-09-28 04:22] LABS: Albumin, Blood 2.1 g/dL (3.4-5.0); Anion Gap 13 mmol/L (6-16); Blood Urea Nitrogen 135 mg/dL (8-24); Bun/Creatinine Ratio 12.7 (12.0-20.0); CO2, Blood 26 mmol/L (21-32); Calcium, Blood 7.8 mg/dL (8.5-10.1); Chloride, Blood 92 mmol/L (98-108); Glomerular Filtration Rate 6 (60-); Glucose, Blood 122 mg/dL (70-99); Phosphorus, Blood 5.2 mg/dL (2.5-4.9); Potassium, Blood 4.2 mmol/L (3.5-5.5); Sodium, Blood 131 mmol/L (136-145)
--- NOTE | 2020-09-28 04:56 | NUR ---
SHIFT SUMMARY: PATIENT IS IN FLUID OVERLOAD, CRITICAL CREATINE AND RESULTS OF STAT CBC, BMP ARE CALLED TO DR AMADOR. ORDERS TO STOP IVF, GIVE AM DOSE OF BUMEX ARE OBTAINED. PATIENT IS RESTING IN BED WITH EYE'S CLOSED. HE IS ANXIOUS AND ASK WRTRE TO STAY IN ROOM WITH HIM UNTIL HE FELT BETTER. 02 SAT IS 99% ON 2L NC HR IS 105.
--- NOTE | 2020-09-28 06:49 | NUR ---
RENAL: DR TERRELL IS IN TO SEE PATIENT AND IS UPDATED ON THE FLUID OVERLOAD AND CHANGE IN CONDITION. ORDERS TO CHANGE BUMEX TO 4MG TID, FIRST DOSE NOW. SEE IF DR DANIELSON CAN PLACE PERMA CATH FOR DIALYSIS TODAY. IF DR YONG GAY HAVE GENERAL SURGERY CONSULTED TO PLACE PERMA CATH. PATIENT IS MADE NPO. BUMEX WAS GIVEN.
[2020-09-28 10:46] LABS: Influenza A, PCR NEGATIVE (NEGATIVE); Influenza B, PCR NEGATIVE (NEGATIVE); Resp Syncytial Virus, PCR NEGATIVE (NEGATIVE); SARS-Cov-2 (COVID-19) PCR, MMC NEGATIVE (NEGATIVE)
--- NOTE | 2020-09-28 13:17 | NUR ---
PT TO DAY SURGERY VIA [facility] FOR PERMACATMayco. NECKLACE REMOVED AND LEFT IN PT ROOM ON BEDSIDE TABLE. POWERGLIDE FLUSHES WELL. IV ZOSYN STARTED PER SCHEDULED ORDER.
--- NOTE | 2020-09-28 15:02 | NUR ---
DRESSING TO RIGHT CHEST SATURATED.MICHELLE AYALA RN CAME TO PACU, DRESSING CHANGED TO GAUZE/TEGADERM PRESSURE HELD FOR 10 MIN. NO SIGNS OF CONTINUED BLEEDING AT THE SITE
--- NOTE | 2020-09-28 15:36 | NUR ---
09/28/20 1536 OPAL,HWAA X2 PORTS OF PERMA CATH EACH FLUSHED WITH HEPARIN 5,000 UNITS/ML 2,1ML BY DR HERNANDEZ INTRA OP.
--- NOTE | 2020-09-28 16:48 | NUR ---
Pastoral care visitation. Pt was resting in bed with his mother at the bedside. Pt's mom shares about the current situation and requests prayer. Pastoral presence and empathic listening extended. Consolatory prayer provided congruently. I will remain available prospectively for pastoral care and support.
--- NOTE | 2020-09-28 18:11 | NUR ---
SHIFT SUMMARY A/O X4; PLEASANT AND COOPERATIVE WITH CARE. PT ADMITTED WITH ACUTE ENCEPHALOPATHY AND RENAL FAILURE AFTER BEING A MISSING PERSON X2 DAYS. HX OF SAHIL AND FOUND IN HIS CAR AFTER RELAPSING. PT FLUID OVERLOADED AND VERY EDEMATOUS FROM THE SHOULDERS DOWN. BAJWA CATHETER IN PLACE FOR STRICT I&O'S. PERMACATH PLACED AND PT HAD DIALYSIS. PORT LEAKING AND REIFORCED. DIALYSIS NURSE HELD PRESSURE FOR 15 MINUTES. MEDICATED FOR PAIN X2 THIS SHIFT PER EMR. VSS; WILL REPORT TO WHIP OPERATOR RN.
--- NOTE | 2020-09-29 01:22 | NUR ---
PHYSICIAN NOTIFY PT HAVING SEVERAL SATURATED DRESSINGS TO R. JUGULAR VEIN S/P PERMACATH PLACEMENT YESTERDAY. DRESSINGS CHANGED AND REINFORCED X4 SO FAR THIS SHIFT. ALSO NOTIFIED CHAIR MECHANIC PROVIDER OF HYPERTENSION. NEW ORDERS FOR REPEAT CBC WITH AM LABS WELL HYDRALAZINE.
--- NOTE | 2020-09-29 02:12 | NUR ---
PHYSICIAN NOTIFY LIGHTING SPECIALIST PROVIDER NOTIFIED OF ADDITIONAL SATURATED DRESSING. PROVIDER AT BEDSIDE TO ASSESS. ADVISED TO PLACE EVELYN GAUZE TO HELP WITH CLOTTING WELL REINFORCEMENT. WILL CONTINUE TO MONITOR
[2020-09-29 04:06] LABS: Hematocrit 19.6 % (37.0-53.0); Hemoglobin 6.7 g/dL (13.5-17.5); Mean Corpuscular HGB 29.6 pg (26.0-34.0); Mean Corpuscular HGB Conc 34.2 g/dL (31.5-36.5); Mean Corpuscular Volume 87 fL (80-100); Mean Platelet Volume 9.3 fL (9.1-12.4); Platelet Count 271 K/mm3 (150-400); RDW Coefficient Variation 13.7 % (11.7-14.2); RDW Standard Deviation 42.5 fL (35.1-46.3); Red Blood Cell Count 2.26 M/mm3 (4.30-5.90); White Blood Cell Count 15.12 K/mm3 (4.00-11.30)
--- NOTE | 2020-09-29 04:30 | NUR ---
PHYSICIAN NOTIFY NOTIFIED PAPER INSERTER PROVIDER OF HGB 6.7. NEW ORDERS TO TRANSFUSE 1 UNIT PRBC. WILL SEND OFF TYPE AND CROSS.
[2020-09-29 07:48] LABS: Albumin, Blood 2.1 g/dL (3.4-5.0); Anion Gap 13 mmol/L (6-16); Blood Urea Nitrogen 97 mg/dL (8-24); Bun/Creatinine Ratio 11.9 (12.0-20.0); CO2, Blood 29 mmol/L (21-32); Chloride, Blood 94 mmol/L (98-108); Creatinine, Blood 8.15 mg/dL (0.60-1.20); Glomerular Filtration Rate 8 (60-); Glucose, Blood 116 mg/dL (70-99); Phosphorus, Blood 4.1 mg/dL (2.5-4.9); Potassium, Blood 3.9 mmol/L (3.5-5.5); Sodium, Blood 136 mmol/L (136-145)
[2020-09-29 10:10] LABS: HBSAG SCREEN Negative (Negative); HEP A AB, IGM Negative (Negative); HEP B CORE AB, IGM Negative (Negative); HEP C VIRUS AB 0.3 (0.0-0.9)
--- NOTE | 2020-09-29 16:37 | NUR ---
PT RECIEVED 1 UNIT OF BLOOD AT START OF SHIFT AND A SECOND ORDER FOR 2 UNITS TO BE ADMINISTERED DURING DIALYSIS WAS PUT IN AT THE SAME TIME. DR TERRELL CALLED AND VERIFIED HE ONLY WANTED PT TO RECEIVE 2 TOTAL UNITS AND TO HOLD ONE OF THE UNITS HE HAD ORDERED DUE TO PT ALREADY RECIEVING FIRST UNIT.
[2020-09-29 16:58] LABS: Hematocrit 25.8 % (37.0-53.0); Hemoglobin 8.7 g/dL (13.5-17.5)
--- NOTE | 2020-09-29 17:26 | NUR ---
PT IS AO AND COOPERATIVE OF CARE. PT DOING WELL AND TALKING TODAY. PT HAS BEEN TIRED AND DOES TAKE FREQUENT NAPS. BAJWA WAS REMOVED AND PT SEEMS TO BE VOIDING WELL AT THIS TIME. PT HAS BEEN TREATED FOR PAIN PER EMAR. CALL LIGHT IS WITHIN REACH, BUT PT DOESN'T ALWAYS USE IT AND WILL CALL OUT. WILL CONTINUE TO MONITOR.
--- NOTE | 2020-09-30 03:49 | NUR ---
USER INTERFACE DEVELOPER SUMMARY A/OX3, 1 ASSIST TO BSC. PT APPEARED TO SLEEP T/O NIGHT. MEDICATED FOR PAIN X1, DENIES SOB. PERMACATH DRESSING C/D/I. NO ACUTE CHANGES AT THIS TIME. BED IN LOWEST POSITION WITH CALL LIGHT IN REACH. WILL CONTINUE TO MONITOR AND REPORT TO ONCOMING RN.
[2020-09-30 04:19] LABS: BASOPHILS ABSOLUTE AUTO 0.03 K/mm3 (0.00-0.23); BASOPHILS PERCENT AUTO 0 % (0-2); EOSINOPHILS ABSOLUTE AUTO 0.15 K/mm3 (0.00-0.68); EOSINOPHILS PERCENT AUTO 2 % (0-6); Hematocrit 35.2 % (37.0-53.0); Hemoglobin 11.8 g/dL (13.5-17.5); IMMATURE GRAN PERCENT AUTO 1 % (0-1); LYMPHOCYTES ABSOLUTE AUTO 0.93 K/mm3 (0.84-5.20); LYMPHOCYTES PERCENT AUTO 12 % (21-46); MONOCYTES ABSOLUTE AUTO 0.59 K/mm3 (0.16-1.47); MONOCYTES PERCENT AUTO 7 % (4-13); Mean Corpuscular HGB Conc 33.5 g/dL (31.5-36.5); Mean Corpuscular Volume 87 fL (80-100); Mean Platelet Volume 9.3 fL (9.1-12.4); NEUTROPHILS ABSOLUTE AUTO 6.18 K/mm3 (1.96-9.15); NEUTROPHILS PERCENT AUTO 77 % (41-73); Platelet Count 241 K/mm3 (150-400); RDW Standard Deviation 43.5 fL (35.1-46.3); Red Blood Cell Count 4.07 M/mm3 (4.30-5.90); White Blood Cell Count 7.98 K/mm3 (4.00-11.30)
[2020-09-30 04:45] LABS: Alanine Aminotransfer (ALT/SGP 68 U/L (12-78); Albumin, Blood 2.1 g/dL (3.4-5.0); Albumin/Globulin Ratio 0.6 (0.8-1.8); Alk Phos 59 U/L (50-136); Anion Gap 8 mmol/L (6-16); Aspartate Aminotrans (AST/SGOT 21 U/L (12-37); Bilirubin, Direct <0.1 mg/dL (0.0-0.3); Bilirubin, Indirect Unable to Calculate mg/dL (0.1-0.7); Bilirubin, Total 0.4 mg/dL (0.1-1.0); Blood Urea Nitrogen 56 mg/dL (8-24); Bun/Creatinine Ratio 10.5 (12.0-20.0); CO2, Blood 31 mmol/L (21-32); Calcium, Blood 8.2 mg/dL (8.5-10.1); Chloride, Blood 100 mmol/L (98-108); Creatinine, Blood 5.32 mg/dL (0.60-1.20); Globulin, Blood 3.5 g/dL (2.2-4.0); Glomerular Filtration Rate 13 (60-); Glucose, Blood 106 mg/dL (70-99); Magnesium, Blood 1.9 mg/dL (1.6-2.4); Phosphorus, Blood 4.5 mg/dL (2.5-4.9); Potassium, Blood 3.9 mmol/L (3.5-5.5); Sodium, Blood 139 mmol/L (136-145); Total Protein, Blood 5.6 g/dL (6.4-8.2)
--- NOTE | 2020-09-30 17:39 | NUR ---
PT AOX4 AND COOPERATIVE OF CARE. PT IS TREATED FOR FOOT PAIN PER EMAR. PT DID WELL IN DIALYSIS. PT DID HAVE A HEADACHE AND PAIN MEDICATION DID NOT SEEM TO MAKE IT BETTER. PT SAID THE PAIN WAS IN HIS FORHEAD AND DR BEGUM ORDERED SOME NORMAL SALINE NASAL SPRAY. PT ALSO HAD INCREASED BP IN AT THE START OF SHIFT AND WAS TREATED X1 PER EMAR. AFTER DIALYSIS HIS BP IS MUCH IMPROVED. CALL LIGHT IS WITHIN REACH WILL CONTINUE TO MONITOR.
--- NOTE | 2020-10-01 03:53 | NUR ---
CAFE AIDE SUMMARY A/O X4, 1 ASSIST TO BSC. MEDICATED X2 FOR PAIN PER EMAR. DENIES SOB, CURRENTLY ON RA WITH SATS GREATER THAN 92. NO ACUTE CHANGES AT THIS TIME. BED IN LOWEST POSITION WITH CALL LIGHT IN REACH. WILL CONTINUE TO MONITOR AND REPORT TO ONCOMING RN.
[2020-10-01 04:35] LABS: BASOPHILS ABSOLUTE AUTO 0.03 K/mm3 (0.00-0.23); BASOPHILS PERCENT AUTO 0 % (0-2); EOSINOPHILS PERCENT AUTO 2 % (0-6); Hematocrit 27.7 % (37.0-53.0); Hemoglobin 9.2 g/dL (13.5-17.5); IMMATURE GRAN ABSOLUTE AUTO 0.07 K/mm3 (0.00-0.10); IMMATURE GRAN PERCENT AUTO 1 % (0-1); LYMPHOCYTES ABSOLUTE AUTO 1.81 K/mm3 (0.84-5.20); LYMPHOCYTES PERCENT AUTO 21 % (21-46); MONOCYTES ABSOLUTE AUTO 0.71 K/mm3 (0.16-1.47); MONOCYTES PERCENT AUTO 8 % (4-13); Mean Corpuscular HGB 29.4 pg (26.0-34.0); Mean Corpuscular HGB Conc 33.2 g/dL (31.5-36.5); Mean Corpuscular Volume 89 fL (80-100); Mean Platelet Volume 9.3 fL (9.1-12.4); NEUTROPHILS ABSOLUTE AUTO 5.95 K/mm3 (1.96-9.15); NEUTROPHILS PERCENT AUTO 68 % (41-73); Platelet Count 327 K/mm3 (150-400); RDW Standard Deviation 44.6 fL (35.1-46.3); Red Blood Cell Count 3.13 M/mm3 (4.30-5.90); White Blood Cell Count 8.77 K/mm3 (4.00-11.30)
[2020-10-01 04:51] LABS: Albumin, Blood 2.3 g/dL (3.4-5.0); Anion Gap 7 mmol/L (6-16); Blood Urea Nitrogen 51 mg/dL (8-24); CO2, Blood 32 mmol/L (21-32); Calcium, Blood 8.5 mg/dL (8.5-10.1); Chloride, Blood 100 mmol/L (98-108); Creatinine, Blood 5.08 mg/dL (0.60-1.20); Glomerular Filtration Rate 14 (60-); Glucose, Blood 95 mg/dL (70-99); Magnesium, Blood 2.1 mg/dL (1.6-2.4); Phosphorus, Blood 5.7 mg/dL (2.5-4.9); Potassium, Blood 3.9 mmol/L (3.5-5.5); Sodium, Blood 139 mmol/L (136-145)
--- NOTE | 2020-10-01 23:23 | NUR ---
TOLERATED HS MEDS WELL. BP ELEVATED, RECEIVED ANTIHYPERTENSIVE - SEE MAR, MED EFFECTIVE. SEE DOCUMENTATION. CALL LIGHT IN REACH
--- NOTE | 2020-10-02 04:23 | NUR ---
SHIFT SUMMARY HAS BEEN RESTING QUIETLY WITH OCCASIONAL AWAKENINGS FOR MEDS, ETC. EDEMA OF BODY CONTINUES BUT LESS THAN NOTED ON DAY SHIFT, VOIDING IN URINAL AT BEDSIDE - SEE I AND O DOCUMENTATION. ALERT AND ORIENTED. BILAT POWERGLIDES FLUSHED AND REMAIN PATENT. CALL LIGHT IN REACH
[2020-10-02 05:08] LABS: BASOPHILS ABSOLUTE AUTO 0.04 K/mm3 (0.00-0.23); BASOPHILS PERCENT AUTO 1 % (0-2); EOSINOPHILS ABSOLUTE AUTO 0.15 K/mm3 (0.00-0.68); EOSINOPHILS PERCENT AUTO 2 % (0-6); Hematocrit 27.5 % (37.0-53.0); Hemoglobin 9.2 g/dL (13.5-17.5); IMMATURE GRAN ABSOLUTE AUTO 0.04 K/mm3 (0.00-0.10); IMMATURE GRAN PERCENT AUTO 1 % (0-1); LYMPHOCYTES ABSOLUTE AUTO 1.57 K/mm3 (0.84-5.20); LYMPHOCYTES PERCENT AUTO 18 % (21-46); MONOCYTES ABSOLUTE AUTO 0.64 K/mm3 (0.16-1.47); MONOCYTES PERCENT AUTO 8 % (4-13); Mean Corpuscular HGB 29.2 pg (26.0-34.0); Mean Corpuscular HGB Conc 33.5 g/dL (31.5-36.5); Mean Corpuscular Volume 87 fL (80-100); Mean Platelet Volume 9.1 fL (9.1-12.4); NEUTROPHILS PERCENT AUTO 71 % (41-73); Platelet Count 353 K/mm3 (150-400); RDW Coefficient Variation 13.6 % (11.7-14.2); Red Blood Cell Count 3.15 M/mm3 (4.30-5.90); White Blood Cell Count 8.54 K/mm3 (4.00-11.30)
[2020-10-02 05:30] LABS: Albumin, Blood 2.5 g/dL (3.4-5.0); Anion Gap 9 mmol/L (6-16); Blood Urea Nitrogen 46 mg/dL (8-24); Bun/Creatinine Ratio 9.9 (12.0-20.0); CO2, Blood 30 mmol/L (21-32); Calcium, Blood 8.4 mg/dL (8.5-10.1); Chloride, Blood 100 mmol/L (98-108); Creatinine, Blood 4.65 mg/dL (0.60-1.20); Glomerular Filtration Rate 15 (60-); Glucose, Blood 103 mg/dL (70-99); Magnesium, Blood 2.1 mg/dL (1.6-2.4); Phosphorus, Blood 6.1 mg/dL (2.5-4.9); Potassium, Blood 4.2 mmol/L (3.5-5.5); Sodium, Blood 139 mmol/L (136-145)
[2020-10-02] MEDS ORDERED: CALC.25 PO (12:02)
[2020-10-02] MEDS ORDERED: BUME2 PO (12:02)
[2020-10-02] MEDS ORDERED: TUMS500 MG PO (12:03)
[2020-10-02] MEDS ORDERED: HYDR10 PO (12:05)
[2020-10-02] MEDS ORDERED: MELATONIN5 M1 PO (12:06)
[2020-10-02] MEDS ORDERED: NICOTINE LOZENGE2 MG MM (12:07)
[2020-10-02] MEDS ORDERED: ONDA4ODT MM (12:08)
[2020-10-02] MEDS ORDERED: OXYC10ER PO (12:09)
[2020-10-02] MEDS ORDERED: PANT40 PO (12:10)
[2020-10-02] MEDS ORDERED: VISBIOME 112.51 EACH PO (12:10)
--- NOTE | 2020-10-02 12:55 | NUR ---
DISCHARGE SUMMARY PT AxOx4. COOPERATIVE WITH CARE TODAY. PT DISCHARGING TO HOME WITH MOTHER. DC INSTRUCTIONS DISCUSSED, INCLUDING DC MEDS, FOLLOW UP APPOINTMENTS, AND DIALYSIS. PT VERBALIZES UNDERSTANDING AND DENIES ANY FURTHER QUESTIONS AT THIS TIME. VITALS REVIEWED. MEDICATED FOR BLE PAIN x1 TODAY, WITH REPORTED RELIEF. PT AMBULATING IN ROOM TODAY, SBA WITH STEADY GAIT. GOOD APPETITE AND URINE OUTPUT. PT REPORTS "NO BM xSEVERAL DAYS," BUT STATES HE "WILL GO WHEN HE GETS HOME." PT SAFELY DC WITH HOME CARE PHYSICAL THERAPIST ESCORTING HIM OUT VIA WC.
== END 2020-10-02 13:03 | disposition home or self-care (01) | DRG 871 ==
LOC: ER 00:59 → MEDS 04:38 → ERHOLD 04:38 → ICUE 04:38 → PCU 09-23 17:58 → MEDS 09-25 18:12
PROVIDERS: Emergency Medicine; Family Medicine; Internal Medicine; Internal Medicine Critical Care Medicine; Internal Medicine Nephrology; Surgery; ADMIT Internal Medicine
PROC: 02HV33Z Insertion of Infusion Device into Superior Vena Cava, Percutaneous Approach (ICD-10-PCS; 2020-09-28)
PROC: 5A1D70Z Performance of Urinary Filtration, Intermittent, Less than 6 Hours Per Day (ICD-10-PCS; 2020-09-28)
PROC: 0JH63XZ Insertion of Tunneled Vascular Access Device into Chest Subcutaneous Tissue and Fascia, Percutaneous Approach (ICD-10-PCS; principal; 2020-09-28 13:00)
PROC: 5A1D70Z Performance of Urinary Filtration, Intermittent, Less than 6 Hours Per Day (ICD-10-PCS; 2020-09-30)
PROC: 30233N1 Transfusion of Nonautologous Red Blood Cells into Peripheral Vein, Percutaneous Approach (ICD-10-PCS; 2020-09-30)
DX: A41.9 Sepsis, unspecified organism (principal); N18.6 End stage renal disease; J18.9 Pneumonia, unspecified organism; G93.41 Metabolic encephalopathy; G92 Toxic encephalopathy; N17.9 Acute kidney failure, unspecified; I12.0 Hypertensive chronic kidney disease with stage 5 chronic kidney disease or end stage renal disease; M62.82 Rhabdomyolysis; E87.0 Hyperosmolality and hypernatremia; D63.1 Anemia in chronic kidney disease; E87.5 Hyperkalemia; F41.9 Anxiety disorder, unspecified; F10.21 Alcohol dependence, in remission; F15.11 Other stimulant abuse, in remission; G25.81 Restless legs syndrome; F11.10 Opioid abuse, uncomplicated
CPT/HCPCS: 0241U; 36415; 36430; 51702; 70450; 74176; 76770; 77001; 80047; 80048; 80053; 80069; 80074; 81001; 81003; 82248; 82330; 82550; 82553; 82803; 82947; 83605; 83735; 84100; 84443; 84484; 84550; 85014; 85018; 85025; 85027; 85610; 85730; 86317; 86850; 86900; 86901; 86923; 87086; 93005; 93010; 93306; 94644; 94660; 96361-59; 96365-59; 96366-59; 96375-59; 96376-59; 99285-25; A9270; C1750; C1751; C9113; J0360; J0610; J0881; J1170; J1644; J1815; J1940; J2060; J2250; J2270; J2405; J2543; J2704; J3010; J3475; J3480; J7030; J7050; J7070; J7120; J7799; P9016

== ENCOUNTER 2020-10-10 20:50 | Emergency (ER) | payer OTHER ==
[~2020-10-10] VITALS: Ht 170.2 cm; Wt 75.8 kg
[~2020-10-10 20:50] MED LIST changes: +BUME2 PO; +CALC.25 PO; +CARVEDILOL12.5 MG PO; +HYDR10 PO; +MELATONIN5 M1 PO; +NICOTINE LOZENGE2 MG MM; +ONDA4ODT MM; +OXYC10ER PO; +PANT40 PO; +ROPINIROLE HCL1 MG PO; +TUMS500 MG PO; +VISBIOME 112.51 EACH PO
[2020-10-10 21:44] LABS: BASOPHILS PERCENT AUTO 1 % (0-2); EOSINOPHILS ABSOLUTE AUTO 0.19 K/mm3 (0.00-0.68); EOSINOPHILS PERCENT AUTO 2 % (0-6); Hemoglobin 11.3 g/dL (13.5-17.5); IMMATURE GRAN ABSOLUTE AUTO 0.04 K/mm3 (0.00-0.10); IMMATURE GRAN PERCENT AUTO 1 % (0-1); LYMPHOCYTES ABSOLUTE AUTO 2.15 K/mm3 (0.84-5.20); LYMPHOCYTES PERCENT AUTO 25 % (21-46); MONOCYTES PERCENT AUTO 14 % (4-13); Mean Corpuscular HGB 29.7 pg (26.0-34.0); Mean Corpuscular HGB Conc 34.2 g/dL (31.5-36.5); Mean Corpuscular Volume 87 fL (80-100); Mean Platelet Volume 9.5 fL (9.1-12.4); NEUTROPHILS ABSOLUTE AUTO 4.79 K/mm3 (1.96-9.15); NEUTROPHILS PERCENT AUTO 57 % (41-73); Platelet Count 513 K/mm3 (150-400); RDW Coefficient Variation 12.2 % (11.7-14.2); RDW Standard Deviation 39.2 fL (35.1-46.3); Red Blood Cell Count 3.81 M/mm3 (4.30-5.90); White Blood Cell Count 8.47 K/mm3 (4.00-11.30)
[2020-10-10 22:02] LABS: Alanine Aminotransfer (ALT/SGP 30 U/L (12-78); Albumin, Blood 3.5 g/dL (3.4-5.0); Albumin/Globulin Ratio 0.8 (0.8-1.8); Alk Phos 85 U/L (50-136); Anion Gap 5 mmol/L (6-16); Aspartate Aminotrans (AST/SGOT 21 U/L (12-37); Bilirubin, Total 0.6 mg/dL (0.1-1.0); Blood Urea Nitrogen 8 mg/dL (8-24); Bun/Creatinine Ratio 7.5 (12.0-20.0); CO2, Blood 35 mmol/L (21-32); Calcium, Blood 8.7 mg/dL (8.5-10.1); Chloride, Blood 97 mmol/L (98-108); Creatinine, Blood 1.07 mg/dL (0.60-1.20); Globulin, Blood 4.5 g/dL (2.2-4.0); Glomerular Filtration Rate >60 (60-); Glucose, Blood 133 mg/dL (70-99); Potassium, Blood 3.5 mmol/L (3.5-5.5); Sodium, Blood 137 mmol/L (136-145)
[2020-10-10] MEDS ORDERED: Cleocin HCl300 MG PO (22:55)
== END 2020-10-10 23:18 | disposition home or self-care (01) ==
LOC: ER 20:50
PROVIDERS: Physician Assistant
DX: L02.31 Cutaneous abscess of buttock (principal); L03.317 Cellulitis of buttock; Z91.041 Radiographic dye allergy status; Z79.899 Other long term (current) drug therapy
CPT/HCPCS: 36415; 80053; 85025; 99282; A9270

== ENCOUNTER → 2021-04-01 | Outpatient (CLI) | payer OTHER | LOC: LAB 17:54 → LAB SHORT 17:54 | DX: L02.413 Cutaneous abscess of right upper limb (principal) | CPT/HCPCS: 87070; 87075; 87106; 87205 ==

== ENCOUNTER → 2021-11-05 | Outpatient (CLI) | payer OTHER ==
[2021-11-12 20:18] LABS: Protein, Urine Quantitative 39.9 mg/dL (0.0-11.9)
[2021-11-12 20:20] LABS: Microalbumin, Urine Quant. 8.59 mg/L (0.000-20.000)
== END | disposition home or self-care (01) ==
LOC: LAB SHORT 09:30 → LAB FUT 09-25 14:35
PROVIDERS: Internal Medicine Nephrology
DX: N18.30 Chronic kidney disease, stage 3 unspecified (principal); D63.1 Anemia in chronic kidney disease; N25.81 Secondary hyperparathyroidism of renal origin; E55.9 Vitamin D deficiency, unspecified; E78.00 Pure hypercholesterolemia, unspecified; R76.9 Abnormal immunological finding in serum, unspecified; R94.5 Abnormal results of liver function studies; R94.6 Abnormal results of thyroid function studies
CPT/HCPCS: 81050; 82043; 82570; 84156

== ENCOUNTER 2022-07-24 06:37 | Inpatient (IN) | payer OTHER ==
[~2022-07-24] VITALS: Ht 170.2 cm; Wt 63.7 kg
[2022-07-24 10:47] LABS: BASOPHILS ABSOLUTE AUTO 0.14 K/mm3 (0.00-0.23); BASOPHILS PERCENT AUTO 1 % (0-2); Hematocrit 40.4 % (37.0-53.0); Hemoglobin 14.4 g/dL (13.5-17.5); LYMPHOCYTES ABSOLUTE AUTO 0.94 K/mm3 (0.84-5.20); LYMPHOCYTES PERCENT AUTO 5 % (21-46); MONOCYTES ABSOLUTE AUTO 1.39 K/mm3 (0.16-1.47); MONOCYTES PERCENT AUTO 7 % (4-13); Mean Corpuscular HGB 29.6 pg (26.0-34.0); Mean Corpuscular HGB Conc 35.6 g/dL (31.5-36.5); Mean Corpuscular Volume 83 fL (80-100); RDW Coefficient Variation 12.3 % (11.7-14.2); RDW Standard Deviation 37.9 fL (35.1-46.3); Red Blood Cell Count 4.86 M/mm3 (4.30-5.90)
[2022-07-24 10:48] LABS: EOSINOPHILS ABSOLUTE AUTO 0.06 K/mm3 (0.00-0.68); EOSINOPHILS PERCENT AUTO 0 % (0-6); IMMATURE GRAN ABSOLUTE AUTO 1.11 K/mm3 (0.00-0.10); IMMATURE GRAN PERCENT AUTO 6 % (0-1); NEUTROPHILS ABSOLUTE AUTO 16.46 K/mm3 (1.96-9.15); NEUTROPHILS PERCENT AUTO 82 % (41-73); Platelet Count 225 K/mm3 (150-400)
[2022-07-24 10:54] LABS: Bun/Creatinine Ratio 36.4 (12.0-20.0); Calcium, Blood 8.4 mg/dL (8.5-10.1); Creatinine, Blood 0.94 mg/dL (0.60-1.20)
[2022-07-24 11:10] LABS: BAND PERCENT MAN 9 % (0-8); BASOPHILS PERCENT MAN 0 % (0-2); EOSINOPHILS PERCENT MAN 1 % (0-6); LYMPHOCYTES PERCENT MAN 9 % (21-46); MONOCYTES PERCENT MAN 2 % (4-13); NEUTROPHILS ABSOLUTE MAN 17.68 K/mm3 (1.96-9.15); SEG NEUTROPHILS PERCENT MAN 79 % (41-73); TOTAL CELLS COUNTED 100
[2022-07-24] MEDS ORDERED: GABA400 PO (15:21)
--- NOTE | 2022-07-24 16:08 | NUR ---
ASSUMED CARE PT ARRIVED TO UNIT VIA WC. PT ABLE TO STAND AND TRANSFER TO BED INDEPENDENTLY. PT ALERT AND ORIENTED. VS STABLE. HR NSR. PT COMPLAINS OF PAIN IN HIS THROAT AND REQUESTS SOMETHING FOR THE SWELLING. PT MEDICATED PER EMAR. THIS RN AND CHARGE NURSE ATTEMPT TO ASSESS THROAT AND PT UNABLE TO OPEN HIS MOUTH ENOUGH TO SEE HIS THROAT. PT INFORMED OF NPO STATUS AND SAFETY. NS INFUSING PER ORDERS. PT ORIENTED TO UNIT. PETECHIA NOTED UP PT'S RIGHT ARM AND NECK. WILL CONTINUE TO MONITOR CLOSELY
--- NOTE | 2022-07-25 06:02 | NUR ---
SHIFT SUMMARY PT IS A/Ox4 AND IS COOPERATIVE WITH CARE PROVIDED BY STAFF. PT HAS SLEPT T/O MOST OF THE NIGHT WITH THE OCCASIONAL TRIP TO THE BATHROOM TO VOID. HAS NOT REPORTED ANY DIFFICULTY BREATHING OR ANY FORM OF AIRWAY COMPROMISE. MAINTAINS SPO2 >95% ON RA WITH NO SOB NOTED WITH EXERTION. CARDIAC WILEY, MAINTAINED SR 60-80'S T/O MOST OF THE NIGHT WITH NO CP OR PRESSURE REPORTED. PT CONINUES TO SELF SUCTION ABSCESS DRAINAGE NEEDED. ABLE TO ABULATE INDEPENDENTLY W/O THE ASSISTANCE OF STAFF. PAIN HAS BEEN MANAGED PER EMAR. NADN, VSS T/O THE SHIFT
[2022-07-25 06:03] LABS: BASOPHILS ABSOLUTE AUTO 0.09 K/mm3 (0.00-0.23); BASOPHILS PERCENT AUTO 1 % (0-2); EOSINOPHILS ABSOLUTE AUTO 0.03 K/mm3 (0.00-0.68); EOSINOPHILS PERCENT AUTO 0 % (0-6); Hematocrit 34.5 % (37.0-53.0); Hemoglobin 11.7 g/dL (13.5-17.5); IMMATURE GRAN ABSOLUTE AUTO 0.88 K/mm3 (0.00-0.10); IMMATURE GRAN PERCENT AUTO 5 % (0-1); LYMPHOCYTES ABSOLUTE AUTO 1.27 K/mm3 (0.84-5.20); LYMPHOCYTES PERCENT AUTO 7 % (21-46); MONOCYTES ABSOLUTE AUTO 1.25 K/mm3 (0.16-1.47); MONOCYTES PERCENT AUTO 7 % (4-13); Mean Corpuscular HGB Conc 33.9 g/dL (31.5-36.5); Mean Corpuscular Volume 85 fL (80-100); Mean Platelet Volume 10.7 fL (9.1-12.4); NEUTROPHILS PERCENT AUTO 82 % (41-73); Platelet Count 262 K/mm3 (150-400); RDW Coefficient Variation 12.6 % (11.7-14.2); RDW Standard Deviation 39.3 fL (35.1-46.3); Red Blood Cell Count 4.04 M/mm3 (4.30-5.90); White Blood Cell Count 19.32 K/mm3 (4.00-11.30)
[2022-07-25 07:05] LABS: Bun/Creatinine Ratio 35.9 (12.0-20.0); Calcium, Blood 8.6 mg/dL (8.5-10.1); Creatinine, Blood 0.73 mg/dL (0.60-1.20); Magnesium, Blood 2.5 mg/dL (1.6-2.4); Potassium, Blood 4.5 mmol/L (3.5-5.5)
[2022-07-25 12:47] LABS: Vancomycin, Trough 17.6 ug/mL (5.0-10.0)
--- NOTE | 2022-07-25 17:21 | NUR ---
SHIFT SUMMARY; ASSUMED CARE AT 0700. A/A/OX4, INDEPENDANT IN ROOM. USES URNIAL AT BEDSIDE WITHOUT DIFFICULTY. SPEAKING FULL SENTENCES, MANAGING SECREATIONS WITHOUT DIFFICULTY, USES ORAL SUCTION PRN FOR ABCSESS DRAINING. ABX PER EMAR. NS INFUSING AT 125ML/HR, REFUSES FOOD TRAYS BUT DRINKS PO FLUIDS AND INSURE. NO VISIBLE THROAT SWELLING, WILL CONTINUE TO MONITOR AND TREAT UNTIL CHANGE OF SHIFT.
[2022-07-26 04:30] LABS: Hemoglobin 11.3 g/dL (13.5-17.5); Mean Corpuscular HGB 28.8 pg (26.0-34.0); Mean Corpuscular HGB Conc 33.2 g/dL (31.5-36.5); Mean Corpuscular Volume 87 fL (80-100); Mean Platelet Volume 10.9 fL (9.1-12.4); Platelet Count 290 K/mm3 (150-400); RDW Coefficient Variation 12.9 % (11.7-14.2); RDW Standard Deviation 41.1 fL (35.1-46.3); Red Blood Cell Count 3.93 M/mm3 (4.30-5.90); White Blood Cell Count 18.47 K/mm3 (4.00-11.30)
[2022-07-26 04:53] LABS: Bun/Creatinine Ratio 34.6 (12.0-20.0); Calcium, Blood 8.1 mg/dL (8.5-10.1); Creatinine, Blood 0.72 mg/dL (0.60-1.20); Potassium, Blood 4.6 mmol/L (3.5-5.5)
[2022-07-26 06:28] LABS: BAND PERCENT MAN 4 % (0-8); BASOPHILS PERCENT MAN 0 % (0-2); EOSINOPHILS ABSOLUTE MAN 0.18 K/mm3 (0.00-0.68); EOSINOPHILS PERCENT MAN 1 % (0-6); LYMPHOCYTES ABSOLUTE MAN 2.03 K/mm3 (0.84-5.20); LYMPHOCYTES PERCENT MAN 11 % (21-46); MONOCYTES ABSOLUTE MAN 0.92 K/mm3 (0.16-1.47); MONOCYTES PERCENT MAN 5 % (4-13); MYELOCYTE ABSOLUTE MAN 0.36 K/mm3 (0.00-0.00); MYELOCYTE PERCENT MAN 2 % (0-0); NEUTROPHILS ABSOLUTE MAN 14.96 K/mm3 (1.96-9.15); SEG NEUTROPHILS PERCENT MAN 77 % (41-73); TOTAL CELLS COUNTED 100
--- NOTE | 2022-07-26 06:28 | NUR ---
VSS THROUGHOUT SHIFT, TORADOL X'S1, REGLAN X'S 2, ONE EPISODE OF VOMITING PER PT THAT HE FLUSHED, GOOD PO INTAKE HOWEVER PT ONLY WANTS LIQUIDS, DID DRINK AN ENSURE FOR ME, UO ADEQUATE IN URINAL, NS AT 125 CC/HR, REQUESTED TYLENOL PRN BE ADDED TO EMAR WELL [id number] QHS THAT HE TAKES AT HOME FOR SLEEP IF POSSIBLE, OTHERWISE NO ISSUES AND ALL NEEDS MET, CALL LIGHT IN REACH
--- NOTE | 2022-07-27 04:03 | NUR ---
TORADOL PRN X'S 1, REGLAN PRN X'S 1, PT SLEPT WELL, PO INTAKE OF FULL LIQUIDS WAS ADEQUATE, NS AT 125CC/HR, UO ADEQUATE, VSS, CALL LIGHT IN REACH
[2022-07-27 04:07] LABS: Hematocrit 33.3 % (37.0-53.0); Hemoglobin 11.4 g/dL (13.5-17.5); Mean Corpuscular HGB 29.5 pg (26.0-34.0); Mean Corpuscular HGB Conc 34.2 g/dL (31.5-36.5); Mean Corpuscular Volume 86 fL (80-100); Mean Platelet Volume 10.1 fL (9.1-12.4); Platelet Count 312 K/mm3 (150-400); RDW Standard Deviation 40.9 fL (35.1-46.3); Red Blood Cell Count 3.86 M/mm3 (4.30-5.90); White Blood Cell Count 16.59 K/mm3 (4.00-11.30)
[2022-07-27 04:28] LABS: Bun/Creatinine Ratio 38.3 (12.0-20.0); Calcium, Blood 7.9 mg/dL (8.5-10.1); Creatinine, Blood 0.76 mg/dL (0.60-1.20); Potassium, Blood 4.5 mmol/L (3.5-5.5)
[2022-07-27 04:58] LABS: BAND PERCENT MAN 1 % (0-8); BASOPHILS PERCENT MAN 0 % (0-2); EOSINOPHILS PERCENT MAN 0 % (0-6); LYMPHOCYTES ABSOLUTE MAN 4.47 K/mm3 (0.84-5.20); LYMPHOCYTES PERCENT MAN 27 % (21-46); METAMYELOCYTE ABSOLUTE MAN 0.33 K/mm3 (0.00-0.00); METAMYELOCYTE PERCENT MAN 2 % (0-0); MONOCYTES ABSOLUTE MAN 0.99 K/mm3 (0.16-1.47); MONOCYTES PERCENT MAN 6 % (4-13); MYELOCYTE ABSOLUTE MAN 0.49 K/mm3 (0.00-0.00); MYELOCYTE PERCENT MAN 3 % (0-0); NEUTROPHILS ABSOLUTE MAN 10.28 K/mm3 (1.96-9.15); SEG NEUTROPHILS PERCENT MAN 61 % (41-73); TOTAL CELLS COUNTED 100
[2022-07-27 12:34] LABS: Vancomycin, Trough 21.5 ug/mL (5.0-10.0)
--- NOTE | 2022-07-27 17:38 | NUR ---
SHIFT SUMMARY; ASSUMED CARE AT 0700, A/A/OX4, PLEASANT AND COOPERATIVE WITH CARE. SPEAKS FULL SENTENCES AND MANAGES SECRETIONS WITHOUT DIFFICULTY. NO VISIBLE THROAT SWELLING. INDEPENDANT IN ROOM, SHOWER TODAY, REPOSITIONS SELF NEEDED ON GURNEY. POWER GLIDE PLACED TODAY BY GIOVANNI HERNANDEZ TO UPPER LEFT. MEDS PER EMAR, VSS, WILL CONTINUE TO MONITOR AND TREAT UNTIL CHANGE OF SHIFT.
[2022-07-28 06:17] LABS: Hematocrit 31.4 % (37.0-53.0); Hemoglobin 10.4 g/dL (13.5-17.5); Mean Corpuscular HGB 28.8 pg (26.0-34.0); Mean Corpuscular HGB Conc 33.1 g/dL (31.5-36.5); Mean Corpuscular Volume 87 fL (80-100); Platelet Count 358 K/mm3 (150-400); RDW Standard Deviation 41.2 fL (35.1-46.3); Red Blood Cell Count 3.61 M/mm3 (4.30-5.90); White Blood Cell Count 15.41 K/mm3 (4.00-11.30)
[2022-07-28 06:51] LABS: BAND PERCENT MAN 1 % (0-8); BASOPHILS PERCENT MAN 0 % (0-2); EOSINOPHILS PERCENT MAN 0 % (0-6); LYMPHOCYTES ABSOLUTE MAN 1.54 K/mm3 (0.84-5.20); LYMPHOCYTES PERCENT MAN 10 % (21-46); METAMYELOCYTE ABSOLUTE MAN 0.15 K/mm3 (0.00-0.00); METAMYELOCYTE PERCENT MAN 1 % (0-0); MONOCYTES ABSOLUTE MAN 1.07 K/mm3 (0.16-1.47); MONOCYTES PERCENT MAN 7 % (4-13); MYELOCYTE PERCENT MAN 2 % (0-0); NEUTROPHILS ABSOLUTE MAN 12.17 K/mm3 (1.96-9.15); SEG NEUTROPHILS PERCENT MAN 78 % (41-73); TOTAL CELLS COUNTED 100
[2022-07-28 06:52] LABS: PROMYELOCYTE ABSOLUTE MAN 0.15 K/mm3 (0.00-0.00); PROMYELOCYTE PERCENT MAN 1 % (0-0)
[2022-07-28 07:11] LABS: Bun/Creatinine Ratio 21.8 (12.0-20.0); Calcium, Blood 7.9 mg/dL (8.5-10.1); Creatinine, Blood 0.83 mg/dL (0.60-1.20); Potassium, Blood 4.1 mmol/L (3.5-5.5)
[2022-07-28] MEDS ORDERED: AMOCLA875 PO (14:12)
--- NOTE | 2022-07-28 14:54 | NUR ---
UPDATE DISCHARGE INSTRUCTIONS PROVIDED TO PT. PT EDUCATED ON MEDICATION. ALL QUESTIONS ANSWERED. PT REFUSED WHEELCHAIR RIDE OUT AND WALKED.
== END 2022-07-28 14:50 | disposition home or self-care (01) | DRG 854 ==
LOC: ER 06:37 → PCU 14:10 → ERHOLD 14:10 → PCU 15:18
PROVIDERS: Nurse Practitioner Acute Care; Student in an Organized Health Care Education/Training Program; ADMIT Internal Medicine
PROC: 0C9P0ZZ Drainage of Tonsils, Open Approach (ICD-10-PCS; principal; 2022-07-24)
PROC: 3E02340 Introduction of Influenza Vaccine into Muscle, Percutaneous Approach (ICD-10-PCS; 2022-07-24)
PROC: 0CJS8ZZ Inspection of Larynx, Via Natural or Artificial Opening Endoscopic (ICD-10-PCS; 2022-07-24)
PROC: 3E03329 Introduction of Other Anti-infective into Peripheral Vein, Percutaneous Approach (ICD-10-PCS; 2022-07-24)
DX: A40.8 Other streptococcal sepsis (principal); E87.1 Hypo-osmolality and hyponatremia; J36 Peritonsillar abscess; F15.10 Other stimulant abuse, uncomplicated; I10 Essential (primary) hypertension; K46.9 Unspecified abdominal hernia without obstruction or gangrene; F17.210 Nicotine dependence, cigarettes, uncomplicated; F11.10 Opioid abuse, uncomplicated; G25.81 Restless legs syndrome; Z88.8 Allergy status to other drugs, medicaments and biological substances; Z91.041 Radiographic dye allergy status; Z96.612 Presence of left artificial shoulder joint; Z91.15 Patient's noncompliance with renal dialysis; Z79.899 Other long term (current) drug therapy; Z79.891 Long term (current) use of opiate analgesic; Z79.2 Long term (current) use of antibiotics; Z98.890 Other specified postprocedural states; Z86.79 Personal history of other diseases of the circulatory system; Z23 Encounter for immunization
CPT/HCPCS: 10160; 36415; 70491; 80048; 80202; 83605; 83735; 85025; 87040; 87076; 90686; 96361-59; 96365-59; 96366-59; 96367-59; 96375-59; 99285-25; A9270; C1751; G0008; J0295; J1100; J1200; J1885; J2765; J2930; J3370; J7030; J7050; Q9967

== ENCOUNTER 2023-04-07 10:00 | Emergency (ER) | payer OTHER ==
[~2023-04-07] VITALS: Ht 160 cm; Wt 54.4 kg
[~2023-04-07 10:00] MED LIST changes: +AMOCLA875 PO; +GABA400 PO
[2023-04-07 10:08] VITALS: BP 148/131
[2023-04-07] MEDS ORDERED: BUPRENORPHIN-N1 EAC4 SL (12:52)
[2023-04-07] MEDS ORDERED: CEPH500 PO (12:52)
== END 2023-04-07 13:59 | disposition home or self-care (01) ==
LOC: ER 10:00
DX: S01.112A Laceration without foreign body of left eyelid and periocular area, initial encounter (principal); S01.111A Laceration without foreign body of right eyelid and periocular area, initial encounter; S00.10XA Contusion of unspecified eyelid and periocular area, initial encounter; T14.8XXA Other injury of unspecified body region, initial encounter; X58.XXXA Exposure to other specified factors, initial encounter; L03.113 Cellulitis of right upper limb; F11.23 Opioid dependence with withdrawal; F15.10 Other stimulant abuse, uncomplicated; I10 Essential (primary) hypertension; F17.210 Nicotine dependence, cigarettes, uncomplicated; Z23 Encounter for immunization; Z88.8 Allergy status to other drugs, medicaments and biological substances; Z79.899 Other long term (current) drug therapy
CPT/HCPCS: 70450; 90471; 90714; 90715; 99284-25; A9270

== ENCOUNTER 2023-09-08 18:02 | Emergency (ER) | payer OTHER ==
[~2023-09-08] VITALS: Ht 170.2 cm; Wt 65.8 kg
[~2023-09-08 18:02] MED LIST changes: +BUPRENORPHIN-N1 EAC4 SL
[2023-09-08 19:51] LABS: BASOPHILS ABSOLUTE AUTO 0.05 K/mm3 (0.00-0.23); BASOPHILS PERCENT AUTO 1 % (0-2); EOSINOPHILS ABSOLUTE AUTO 0.19 K/mm3 (0.00-0.68); EOSINOPHILS PERCENT AUTO 2 % (0-6); Hematocrit 39.4 % (37.0-53.0); Hemoglobin 13.6 g/dL (13.5-17.5); IMMATURE GRAN ABSOLUTE AUTO 0.02 K/mm3 (0.00-0.10); IMMATURE GRAN PERCENT AUTO 0 % (0-1); LYMPHOCYTES ABSOLUTE AUTO 1.65 K/mm3 (0.84-5.20); LYMPHOCYTES PERCENT AUTO 20 % (21-46); MONOCYTES ABSOLUTE AUTO 0.64 K/mm3 (0.16-1.47); MONOCYTES PERCENT AUTO 8 % (4-13); Mean Corpuscular HGB 28.2 pg (26.0-34.0); Mean Corpuscular HGB Conc 34.5 g/dL (31.5-36.5); Mean Corpuscular Volume 82 fL (80-100); Mean Platelet Volume 9.3 fL (9.1-12.4); NEUTROPHILS ABSOLUTE AUTO 5.81 K/mm3 (1.96-9.15); NEUTROPHILS PERCENT AUTO 70 % (41-73); Platelet Count 315 K/mm3 (150-400); RDW Coefficient Variation 13.6 % (11.7-14.2); RDW Standard Deviation 40.1 fL (35.1-46.3); Red Blood Cell Count 4.83 M/mm3 (4.30-5.90); White Blood Cell Count 8.36 K/mm3 (4.00-11.30)
[2023-09-08 20:19] LABS: Albumin, Blood 4.3 g/dL (3.4-5.0); Albumin/Globulin Ratio 1.2 (0.8-1.8); Bilirubin, Total 0.7 mg/dL (0.1-1.0); Bun/Creatinine Ratio 16.3 (12.0-20.0); Calcium, Blood 9.6 mg/dL (8.5-10.1); Creatinine, Blood 0.8 mg/dL (0.60-1.20); Globulin, Blood 3.5 g/dL (2.2-4.0); Potassium, Blood 3.7 mmol/L (3.5-5.5); Total Protein, Blood 7.8 g/dL (6.4-8.2)
[2023-09-08 21:50] LABS: U Buprenorphine Screen DETECTED
[2023-09-08 21:51] LABS: U Amphetamine Screen Not Detected; U Barbituate Screen Not Detected; U Benzodiazapine Screen Not Detected; U Cannabinoids Screen Not Detected; U Cocaine Screen Not Detected; U Methadone Screen Not Detected; U Methamphetamine Screen Not Detected; U Opiates Screen Not Detected; U Oxycodone Screen Not Detected; U Phencyclidine Screen Not Detected
[2023-09-08] MEDS ORDERED: METOPROLOL SUCC25 MG PO (22:30)
[2023-09-09 00:45] VITALS: BP 116/68
== END 2023-09-09 00:46 | disposition home or self-care (01) ==
LOC: ER 18:02
PROVIDERS: Emergency Medicine
DX: R06.02 Shortness of breath (principal); I10 Essential (primary) hypertension; F17.210 Nicotine dependence, cigarettes, uncomplicated; Z88.8 Allergy status to other drugs, medicaments and biological substances; Z79.899 Other long term (current) drug therapy
CPT/HCPCS: 71046; 80053; 83880; 84484; 85025; 85379; 93005; 93010; 99285-25; J7030

== ENCOUNTER → 2023-10-06 | Outpatient (CLI) | payer OTHER ==
[~2023-10-06] MED LIST changes: +METOPROLOL SUCC25 MG PO
[2023-10-06 13:47] LABS: Protein, Urine Quantitative 62.5 mg/dL (0.0-11.9)
[2023-10-06 13:49] LABS: Microalbumin, Urine Quant. 31.3 mg/L (0.000-20.000)
== END | disposition home or self-care (01) ==
LOC: LAB SHORT 08:33 → LAB FUT 09-28 11:50
PROVIDERS: Internal Medicine Nephrology
DX: E11.22 Type 2 diabetes mellitus with diabetic chronic kidney disease (principal); N18.2 Chronic kidney disease, stage 2 (mild); D63.1 Anemia in chronic kidney disease; E11.21 Type 2 diabetes mellitus with diabetic nephropathy; N25.81 Secondary hyperparathyroidism of renal origin; E78.00 Pure hypercholesterolemia, unspecified; R76.9 Abnormal immunological finding in serum, unspecified; R94.5 Abnormal results of liver function studies; R94.6 Abnormal results of thyroid function studies
CPT/HCPCS: 81050; 82043; 84156

== ENCOUNTER 2024-04-11 05:13 | Emergency (ER) | payer OTHER ==
[~2024-04-11] VITALS: Ht 170.2 cm; Wt 67.1 kg
[2024-04-11] MEDS ORDERED: Pantoprazole Sodium 40 MG Injection IV ONE (05:55)
[2024-04-11 06:17] LABS: BASOPHILS ABSOLUTE AUTO 0.03 K/mm3 (0.00-0.23); BASOPHILS PERCENT AUTO 0 % (0-2); EOSINOPHILS ABSOLUTE AUTO 0.11 K/mm3 (0.00-0.68); EOSINOPHILS PERCENT AUTO 1 % (0-6); Hematocrit 40.2 % (37.0-53.0); Hemoglobin 14.1 g/dL (13.5-17.5); IMMATURE GRAN ABSOLUTE AUTO 0.03 K/mm3 (0.00-0.10); IMMATURE GRAN PERCENT AUTO 0 % (0-1); LYMPHOCYTES ABSOLUTE AUTO 1.49 K/mm3 (0.84-5.20); LYMPHOCYTES PERCENT AUTO 15 % (21-46); MONOCYTES ABSOLUTE AUTO 0.85 K/mm3 (0.16-1.47); MONOCYTES PERCENT AUTO 8 % (4-13); Mean Corpuscular HGB Conc 35.1 g/dL (31.5-36.5); Mean Corpuscular Volume 83 fL (80-100); Mean Platelet Volume 9.3 fL (9.1-12.4); NEUTROPHILS ABSOLUTE AUTO 7.57 K/mm3 (1.96-9.15); NEUTROPHILS PERCENT AUTO 75 % (41-73); Platelet Count 378 K/mm3 (150-400); RDW Coefficient Variation 13.2 % (11.7-14.2); RDW Standard Deviation 39.6 fL (35.1-46.3); Red Blood Cell Count 4.87 M/mm3 (4.30-5.90); White Blood Cell Count 10.08 K/mm3 (4.00-11.30)
[2024-04-11 06:46] LABS: Albumin, Blood 4.5 g/dL (3.4-5.0); Albumin/Globulin Ratio 1.2 (0.8-1.8); Bilirubin, Total 1.3 mg/dL (0.1-1.0); Bun/Creatinine Ratio 19.3 (12.0-20.0); Calcium, Blood 9.3 mg/dL (8.5-10.1); Creatinine, Blood 1.19 mg/dL (0.60-1.20); Globulin, Blood 3.9 g/dL (2.2-4.0); Potassium, Blood 3.2 mmol/L (3.5-5.5); Total Protein, Blood 8.4 g/dL (6.4-8.2)
[2024-04-11] MEDS ORDERED: OMEP20ER PO (07:14)
[2024-04-11] MEDS ORDERED: POTA10T PO (07:14)
[2024-04-11 07:15] VITALS: BP 112/96
== END 2024-04-11 07:23 | disposition home or self-care (01) ==
LOC: ER 05:13
PROVIDERS: Emergency Medicine
DX: R19.7 Diarrhea, unspecified (principal); R11.2 Nausea with vomiting, unspecified; E87.6 Hypokalemia; R10.9 Unspecified abdominal pain; I10 Essential (primary) hypertension; F17.200 Nicotine dependence, unspecified, uncomplicated; Z79.899 Other long term (current) drug therapy; Z91.041 Radiographic dye allergy status; Z88.8 Allergy status to other drugs, medicaments and biological substances
CPT/HCPCS: 80053; 85025; 96374; 99284-25; J2470

== ENCOUNTER 2025-02-13 00:26 | Emergency (ER) | payer OTHER ==
[~2025-02-13] VITALS: Ht 170.2 cm; Wt 72.6 kg
[~2025-02-13 00:26] MED LIST changes: +OMEP20ER PO; +POTA10T PO
[2025-02-13 04:18] LABS: BASOPHILS ABSOLUTE AUTO 0.02 K/mm3 (0.00-0.23); BASOPHILS PERCENT AUTO 0 % (0-2); EOSINOPHILS ABSOLUTE AUTO 0.02 K/mm3 (0.00-0.68); EOSINOPHILS PERCENT AUTO 0 % (0-6); Hematocrit 37.3 % (37.0-53.0); Hemoglobin 12.1 g/dL (13.5-17.5); IMMATURE GRAN ABSOLUTE AUTO 0.06 K/mm3 (0.00-0.10); IMMATURE GRAN PERCENT AUTO 1 % (0-1); LYMPHOCYTES ABSOLUTE AUTO 0.74 K/mm3 (0.84-5.20); LYMPHOCYTES PERCENT AUTO 8 % (21-46); MONOCYTES ABSOLUTE AUTO 0.37 K/mm3 (0.16-1.47); MONOCYTES PERCENT AUTO 4 % (4-13); Mean Corpuscular HGB Conc 32.4 g/dL (31.5-36.5); Mean Corpuscular Volume 87 fL (80-100); NEUTROPHILS ABSOLUTE AUTO 8.53 K/mm3 (1.96-9.15); NEUTROPHILS PERCENT AUTO 88 % (41-73); NRBC ABSOLUTE 0.00 K/mm3 (0.00-0.02); NRBC Auto 0.0 /100 WBC (0.0-0.2); Platelet Count 355 K/mm3 (150-400); RDW Coefficient Variation 13.5 % (11.7-14.2); RDW Standard Deviation 43.3 fL (35.1-46.3)
[2025-02-13 04:40] LABS: Alanine Aminotransfer (ALT/SGP 29.0 U/L (12-78); Albumin, Blood 3.5 g/dL (3.4-5.0); Albumin/Globulin Ratio 0.9 (0.8-1.8); Anion Gap 6.0 mmol/L (3-11); Aspartate Aminotrans (AST/SGOT 17.0 U/L (12-37); Bilirubin, Total 0.3 mg/dL (0.1-1.0); Blood Urea Nitrogen 13.0 mg/dL (8-24); CO2, Blood 31.0 mmol/L (21-32); Calcium, Blood 8.8 mg/dL (8.5-10.1); Chloride, Blood 104.0 mmol/L (98-108); Creatinine, Blood 1.03 mg/dL (0.60-1.20); Globulin, Blood 4.1 g/dL (2.2-4.0); Glucose, Blood 134.0 mg/dL (70-99); Potassium, Blood 3.4 mmol/L (3.5-5.5); Sodium, Blood 138.0 mmol/L (136-145); Total Protein, Blood 7.6 g/dL (6.4-8.2)
[2025-02-13] MEDS ORDERED: RX Prepack 6 Tabs Oxycodone 5mg UD ONE (06:30)
[2025-02-13] MEDS ORDERED: NS 1,000 ML IV SCH (06:30)
[2025-02-13] MEDS ORDERED: TAMS.4ER PO (06:32)
[2025-02-13] MEDS ORDERED: Ketorolac Tromethamine 15mg Vial IV ONE (06:35)
[2025-02-13 06:52] VITALS: BP 132/82
== END 2025-02-13 06:53 | disposition home or self-care (01) ==
LOC: ER 00:26
PROVIDERS: Emergency Medicine
DX: N20.1 Calculus of ureter (principal); E86.0 Dehydration; I10 Essential (primary) hypertension; F17.200 Nicotine dependence, unspecified, uncomplicated; Z88.5 Allergy status to narcotic agent; Z88.8 Allergy status to other drugs, medicaments and biological substances; Z79.899 Other long term (current) drug therapy
CPT/HCPCS: 74176; 80053; 83690; 85025; 96374; 99284-25; A9270; J1885

== ENCOUNTER 2025-06-15 13:22 | Emergency (ER) | payer OTHER ==
[~2025-06-15] VITALS: Ht 170.2 cm; Wt 71.2 kg
[~2025-06-15 13:22] MED LIST changes: +TAMS.4ER PO
[2025-06-15 14:56] VITALS: BP 118/74
== END 2025-06-15 15:08 | disposition home or self-care (01) ==
LOC: ER 13:22
DX: F11.20 Opioid dependence, uncomplicated (principal); Z76.0 Encounter for issue of repeat prescription; Z88.5 Allergy status to narcotic agent; Z91.041 Radiographic dye allergy status; Z79.899 Other long term (current) drug therapy; F17.200 Nicotine dependence, unspecified, uncomplicated
CPT/HCPCS: 99281; A9270